=== PATIENT | male | born 1980 | race Caucasian/White ===

== ENCOUNTER 2022-06-08 05:42 | Observation (INO) | payer OTHER ==
--- NOTE | 2022-06-08 06:33 | ERPHSYRPT ---
- History of Present Illness Time Seen by Provider: 06/08/22 06:29 Source: patient Exam Limitations: no limitations Patient Subjective Stated Complaint: pt states I need detoxed now or else I'm going to . I am probably in DKA because I have not had my medicine for the p ast week. Triage Nursing Assessment: pt came into the er via ambulance; pt is restless, irritable, yelling out; c/o abd pain; ETOH; axo x3; abd round, soft, tender; active bowel sounds in all quads; no respiratory distress present; skin PDW; blood sugar on arrival reads HI; tachycardic Physician History: Patient is a 41-year-old male presents to our ED via EMS for evaluation of alcohol withdrawal. Patient states he drinks approximately half gallon of vodka per day. Patient last drink was approximately 1 hour prior to arrival. Patient states that he was unable to continue drinking because his body was "rejecting it". Patient is a type I diabetic. Patient believes he may be experiencing DKA which is possibly the underlying reason why his body is rejecting the alcohol. Patient has not taken his medication in over a week. No clear explanation as to why he has not been compliant with his medication regimen. Patient is experiencing some vague epigastric pain. No trauma. No fever. Patient is afraid that he may go into withdrawals. Symptoms are constant. Symptoms are moderate in intensity. No specific worsening improving factors. Patient voices no other complaints or concerns at this time. Portions of this note were created with voice recognition technology. There may be grammatical, spelling, punctuation or sound alike errors Timing/Duration: today Severity: moderate Modifying Factors: Improves With: nothing Associated Symptoms: denies symptoms, abdominal pain Allergies/Adverse Reactions: No Known Drug Allergies Allergy (Unverified 06/08/22 05:50) Home Medications: No Reportable Medications [No Reported Medications] 06/08/22 [History] Hx Tetanus, Diphtheria Vaccination/Date Given: Yes Hx Influenza Vaccination/Date Given: Yes Hx Pneumococcal Vaccination/Date Given: No Travel Risk - International Travel Have you traveled outside of the country in past 3 weeks: No - Coronavirus Screening Are you exhibiting any of the following symptoms?: No Close contact with a COVID-19 positive Pt in past 14-21 Days: No - Vaccine Status Have you recieved a Covid-19 vaccination: Yes [employer]: [employer] - Review of Systems Constitutional: No Symptoms, No Fever, No Chills Eyes: No Symptoms Ears, Nose, & Throat: No Symptoms Respiratory: No Symptoms, No Cough, No Dyspnea Cardiac: No Symptoms, No Chest Pain, No Edema, No Syncope Abdominal/Gastrointestinal: No Symptoms, No Abdominal Pain, No Nausea, No Vomiting, No Diarrhea Genitourinary Symptoms: No Symptoms, No Dysuria Musculoskeletal: No Symptoms, No Back Pain, No Neck Pain Skin: No Symptoms, No Rash Neurological: No Symptoms, No Dizziness, No Focal Weakness, No Sensory Changes Psychological: No Symptoms Endocrine: No Symptoms Hematologic/Lymphatic: No Symptoms Immunological/Allergic: No Symptoms All Other Systems: Reviewed and Negative - Past Medical History Pertinent Past Medical History: Yes Cardiac History: Hypertension Endocrine Medical History: Diabetes Type I Psycho-Social History: Anxiety, Bipolar, Depression - Past Surgical History Past Surgical History: No - Social History Smoking Status: Current every day smoker How long have you smoked: 20 Exposure to second hand smoke: Yes Drug Use: methamphetamines Patient Lives Alone: No - Nursing Vital Signs Nursing Vital Signs: Initial Vital Signs Temperature 98.7 F 06/08/22 05:43 Pulse Rate 109 H 06/08/22 05:43 Respiratory Rate 26 H 06/08/22 05:43 Blood Pressure 132/97 06/08/22 05:43 O2 Sat by Pulse Oximetry 97 06/08/22 05:43 Pain Scale Pain Intensity 10 - Physical Exam General Appearance: mild distress, alert, other (Patient appears to be restless concerned with alcohol detox. Patient requesting admission) Eye Exam: PERRL/EOMI, eyes nml inspection Ears, Nose, Throat Exam: normal ENT inspection, TMs normal, pharynx normal, moist mucous membranes Neck Exam: normal inspection, non-tender, supple, full range of motion Respiratory Exam: normal breath sounds, lungs clear, airway intact, No re spiratory distress Cardiovascular Exam: regular rate/rhythm, normal heart sounds, normal peripheral pulses Gastrointestinal/Abdomen Exam: soft, normal bowel sounds, tenderness, No mass Back Exam: normal inspection, normal range of motion, No CVA tenderness, No vertebral tenderness Extremity Exam: normal inspection, normal range of motion, pelvis stable Neurologic Exam: alert, oriented x 3, cooperative, normal mood/affect, sensation nml, No motor deficits Skin Exam: normal color, warm, dry, No rash Lymphatic Exam: No adenopathy SpO2 Interpretation: normal SpO2: 97 O2 Delivery: Room Air - Course Nursing assessment & vital signs reviewed: Yes Ordered Tests: Active Orders 24 hr Category Date Time Status Inspector And Unloader STAT Care 06/08/22 06:23 Active IV Insertion STAT Care 06/08/22 06:22 Active Pulse Oximetry (ED) STAT Care 06/08/22 06:22 Active CBC W DIFF Stat Lab 06/08/22 06:22 Ordered CMP Stat Lab 06/08/22 06:22 Ordered ETHYL ALCOHOL Stat Lab 06/08/22 06:22 Ordered LIPASE Stat Lab 06/08/22 06:22 Ordered TROPONIN Q4H Lab 06/08/22 06:30 Ordered TROPONIN Q4H Lab 06/08/22 10:30 Ordered TROPONIN Q4H Lab 06/08/22 14:30 Ordered UA W/RFX UR CULTURE Stat Lab 06/08/22 06:31 Completed Urine Triage Profile Stat Lab 06/08/22 06:31 Received Lab/Rad Data: Laboratory Results 06/08/22 Range/Units 06:31 Urine Color Yellow (Yellow) Urine Appearance Clear (Clear) Urine pH 5.5 (4.6-8.0) Ur Specific [place] >=1.030 A (1.005-1.030) Urine Protein Negative (Negative) Urine Glucose (UA) >=1000 A (Negative) mg/dL Urine Ketones 40 A (Negative) Urine Blood Negative (Negative) Urine Nitrite Negative (Negative) Urine Bilirubin Negative (Negative) Urine Urobilinogen 0.2 (0.2) mg/dL Ur Leukocyte Esterase Negative (Negative) U Hyaline Cast (Auto) NONE SEEN (0-2) /LPF Urine Microscopic RBC 0-2 (0-5) /HPF Urine Microscopic WBC 0-2 (0-5) /HPF Ur Epithelial Cells None Seen (None Seen) /HPF Urine Bacteria None Seen (None Seen) /HPF Urine Culture Reflexed NO (NO) - Progress Progress: improved Progress Note: Staff having difficult time accessing patient. Patient states he is a hard stick due to history of IV drug use. Patient reports that he typically requires a PICC line for access. We are currently awaiting blood draw and access. Surgical services consulted. 06/08/22 06:[address] Lizama at approximately 7 PM during change of shift. 06/08/22 06:50 - Departure Clinical Impression: Alcohol use Condition: Stable Critical Care Time: No
[2022-06-08 06:46] LABS: Appearance Clear (Clear); Bacteria None Seen /HPF (None Seen); Bilirubin Negative (Negative); Blood Negative (Negative); Epithelial Cells None Seen /HPF (None Seen); Glucose, Urine >=1000 mg/dL (Negative); Hyaline Casts NONE SEEN /LPF (0-2); Ketones 40 (Negative); Leukocyte Esterase Negative (Negative); Nitrite Negative (Negative); Ph 5.5 (4.6-8.0); Protein,Urine Dip Negative (Negative); RBC 0-2 /HPF (0-5); Specific Gravity >=1.030 (1.005-1.030); Urobilinogen 0.2 mg/dL (0.2); WBC 0-2 /HPF (0-5)
[2022-06-08 06:47] LABS: ADD URINE CULTURE? NO (NO)
[2022-06-08 06:57] LABS: Amphetamine,Urine NEGATIVE (NEGATIVE); Barbiturate,Urine NEGATIVE (NEGATIVE); Benzodiazepine,Urine NEGATIVE (NEGATIVE); Cocaine,Urine NEGATIVE (NEGATIVE); Methadone,Urine NEGATIVE (NEGATIVE); Opiate,Urine NEGATIVE (NEGATIVE); PCP,Urine NEGATIVE (NEGATIVE); THC,Urine NEGATIVE (NEGATIVE)
[2022-06-08 06:59] LABS: Absolute Neutrophil Ct (ANC) 5.84 x10^3/uL (1.4-6.9); BASOPHIL % 1.5 % (0.0-0.4); Basophil (Absolute #) 0.12 x10^3/uL (0-0.4); Eosinophil % 0.1 % (0.00-5.0); Eosinophil (Absolute #) 0.01 x10^3/uL (0-0.5); Hematocrit 47.1 % (42-50); Hemoglobin 14.6 g/dL (12.5-18.0); IMMATURE GRAN # 0.02 x10^3u/L (0.00-0.03); IMMATURE GRAN % 0.2 % (0.00-0.4); Lymphocytes % 18.4 % (24.0-44.0); Mean Cell Volume 93.6 fL (78-100); Mean Platelet Volume 10.2 fL (7.5-11.0); Monocyte (Absolute #) 0.67 x10^3/uL (0.0-1.3); Monocytes % 8.2 % (0.0-12.0); Neutrophil % 71.6 % (36.0-66.0); Platelet Count 386 x10^3/uL (150-450); Red Blood Count 5.03 x10^6/uL (4.1-5.6); Red Cell Distribution Width 14.2 % (11.5-14.0); White Blood Count 8.2 x10^3/uL (4.0-10.5)
[2022-06-08 07:14] LABS: ALBUMIN 5.3 g/dL (3.5-5.0); ALKALINE PHOSPHATASE 175 U/L (38-126); ANION GAP 40.4 MEQ/L (5-15); BLOOD UREA NITROGEN 21 mg/dL (9-20); CHLORIDE 83 mmol/L (98-107); Calcium 9.1 mg/dL (8.4-10.2); Creatinine 1 1.18 mg/dL (0.66-1.25); EST GLOMERULAR FILTRATION RATE > 60.0 ML/MIN; ETHYL ALCOHOL 153 mg/dL (0-10); LIPASE 147 U/L (23-300); SGOT/AST 35 U/L (17-59); SGPT/ALT 28 U/L (0-50); SODIUM 126 mmol/L (137-145); Total Protein 9.6 g/dL (6.3-8.2)
[2022-06-08] MEDS ORDERED: Ativan 2 MG/1 ML VIAL IV ONE (07:15)
[2022-06-08] MEDS ORDERED: Ativan 2 MG/1 ML VIAL ONE (07:19)
[2022-06-08 07:33] LABS: Glucose 919 mg/dL (74-106)
[2022-06-08 07:34] LABS: Carbon Dioxide 10 mmol/L (22-30); Potassium 6.5 mmol/L (3.5-5.1)
[2022-06-08] MEDS ORDERED: VELTASSA PO STA (07:44)
[2022-06-08] MEDS ORDERED: PROVENTIL 2.5 MG/3 ML NEB IH ONE ×2 (07:44→07:55)
[2022-06-08] MEDS ORDERED: VELTASSA PO ONE ×2 (07:49→07:51)
[2022-06-08] MEDS ORDERED: Ativan 2 MG/1 ML VIAL IM ONE (07:54)
[2022-06-08] MEDS ORDERED: HUMULIN R SQ ONE (08:37)
[2022-06-08 08:58] LABS: INFLUENZA A NEGATIVE (NEGATIVE); INFLUENZA B NEGATIVE (NEGATIVE); RESPIRATORY SYNCTIAL VIRUS NEGATIVE (NEGATIVE); SARS-CoV-2 Xpert Express NEGATIVE (NEGATIVE)
--- NOTE | 2022-06-08 09:00 | XRAY ---
Indication: Pain. Surgical history offered for cyst removal from pancreas. Multiple contiguous axial images obtained through the abdomen and pelvis without contrast. Comparison: None Study is mildly degraded by respiration artifact throughout. Lung bases grossly clear. Heart not enlarged. Stomach is distended with mildly fluid distended either from recent ingestion versus gastritis. Radiopacities in the stomach presumed ingested medication/bismuth. Noncontrasted bowel loops appear nonobstructed. Appendix not seen. Minimal sigmoid diverticulosis without diverticulitis. Tail of pancreas demonstrates 1.9 x 3.3 cm benign-appearing calcification presumed post surgical given patient history. Diffuse fatty liver. No free fluid/air. Remaining liver, gallbladder, pancreas, spleen, adrenal glands, kidneys, ureters, and bladder are unremarkable for noncontrast exam. Minimal aortic calcifications without AAA. Osseous structures intact. 2.5 cm wide umbilical ventral hernia defect with large herniated omental fat. Impression: 1. Diffuse respiration artifact. 2. Fluid distended stomach either from recent ingestion versus gastritis. 3. Chronic findings including pancreas macrocalcification presumed postsurgical, fatty liver, arteriosclerotic disease, and fatty umbilical ventral hernia.
[2022-06-08] MEDS ORDERED: HUMULIN R ONE (09:02)
[2022-06-08] MEDS ORDERED: SODIUM BICARBONATE 50 MEQ/50 ML ABBOJECT IV ONE ×2 (09:30→11:24)
[2022-06-08] MEDS ORDERED: Sodium Chloride 0.9% 1000 ML 1,000 ML IV STA (09:30)
[2022-06-08] MEDS ORDERED: Lasix 40 MG/4 ML IV ONE (09:30)
[2022-06-08] MEDS ORDERED: Calcium Gluconate 10% 1000 MG IV ONE ×2 (09:31→11:23)
[2022-06-08] MEDS ORDERED: Sodium Chloride 0.9% 1000 ML 1,000 ML ONE ×3 (11:24→23:06)
[2022-06-08] MEDS ORDERED: Lasix 40 MG/4 ML ONE (11:24)
--- NOTE | 2022-06-08 11:45 | XRAY ---
Indication: Central line placement. Comparison: None Portable chest demonstrates right internal jugular central venous access catheter with tip projecting over atrial caval junction. No pneumothorax. Remaining heart, lungs, and bony thorax normal.
[2022-06-08] MEDS ORDERED: MYXREDLIN 100 UNIT/100 ML BAG 100 UNIT/100 ML PLAST..BAG IV ONE (12:14)
[2022-06-08 13:28] LABS: BLOOD UREA NITROGEN 21 mg/dL (9-20); CHLORIDE 88 mmol/L (98-107); Calcium 9.5 mg/dL (8.4-10.2); Carbon Dioxide 20 mmol/L (22-30); Creatinine 1 0.97 mg/dL (0.66-1.25); EST GLOMERULAR FILTRATION RATE > 60.0 ML/MIN; Glucose 418 mg/dL (74-106); Potassium 4.1 mmol/L (3.5-5.1); SODIUM 132 mmol/L (137-145)
[2022-06-08] MEDS ORDERED: MYXREDLIN 100 UNIT/100 ML BAG 100 UNIT/100 ML PLAST..BAG IV PRN (13:50)
--- NOTE | 2022-06-08 15:22 | ANESPROCNO ---
Anesthesia Procedure Note - Anesthesia Procedure Note Procedure Date:: 06/08/22 Procedure Time:: 10:00 Anesthesia Procedure Note: Consulted to ER for central venous access; Dx DKA. Informed consent obtained from patient. Risks/benefits discussed to include bleeding, infection, hematoma, vascular injury, and pneumothorax. Patient verbalized understanding and agreed to proceed. Right neck prep CHG2%IPA70% allowed 3 minute dry time. Right neck sterile prep and drape with all protective barriers utilized including full body drape and sterile ultrasound probe cover. Using ultrasound guidance, the right internal jugular was identified as target vessel. Skin and subcutaneous tissue above target vessel localized with 5cc 1% lidocaine. Using an Arrow three-lumen CVC kit, the target vessel was cannulated with the 18ga X 2.5 spring-wire introduction needle/syringe X 1 attempt. Positive brisk venous, non-pulsatile blood return. The guidewire was then introduced through the syringe/needle easily and needle removed. Wire placement within the right internal jugular vein was verified using ultrasound in both short and long vessel axis. The vessel dilator was introduced X 1 over the wire easily. At this point, the 7 FR X 20 cm 3 lumen catheter was introduced using the distal port to a depth of 19 cm and the wire removed. Care was taken to aspirate all lumens of air and subsequently flushed with normal saline. All ports with brisk venous blood return and flushed easily. The catheter was then sutured in place and a sterile occlusive dressing was applied. All needles and wires were removed intact. There were no complications and the patient tolerated the procedure well. A stat PCXR was obtained. No pneumothorax. Tip residing in the cavoatrial junction.
[2022-06-08] MEDS ORDERED: PROTONIX 40 MG IV IV SCH (15:23)
[2022-06-08] MEDS ORDERED: TYLENOL 325 MG PO PRN (15:23)
[2022-06-08] MEDS ORDERED: Zofran 4 MG/2 ML VIAL IV PRN (15:23)
[2022-06-08] MEDS ORDERED: Ativan 2 MG/1 ML VIAL IV PRN (15:23)
[2022-06-08] MEDS ORDERED: Sodium Chloride 0.9% 1000 ML 1,000 ML IV SCH (15:23)
[2022-06-08] MEDS: Ativan 2 MG/1 ML VIAL IV PRN ×4 (15:32→22:25)
[2022-06-08 15:37] LABS: BLOOD UREA NITROGEN 21 mg/dL (9-20); CHLORIDE 92 mmol/L (98-107); Carbon Dioxide 26 mmol/L (22-30); Creatinine 1 0.96 mg/dL (0.66-1.25); EST GLOMERULAR FILTRATION RATE > 60.0 ML/MIN; Glucose 252 mg/dL (74-106); Potassium 3.8 mmol/L (3.5-5.1); SODIUM 134 mmol/L (137-145)
[2022-06-08] MEDS ORDERED: HUMALOG SQ PRN (16:00)
[2022-06-08] MEDS: D5W/0.45NS W/ 20mEq KCl 1000 ML 1,000 ML IV SCH ×2 (16:38→23:38)
[2022-06-08 17:21] LABS: Calcium 10.2 mg/dL (8.4-10.2)
--- NOTE | 2022-06-08 17:57 | PCM.HP ---
History of Present Illness - Chief Complaint Chief Complaint: DKA, HYPONATREMIA, HYPERKALEMIA, ALCOHOL INTOXICATION History of Present Illness: is a 41 year old male.for evaluation of alcohol withdrawal. Patient states he drinks approximately half gallon of vodka per day. Patient last drink was approximately 1 hour prior to arrival. Patient states that he was unable to continue drinking because his body was "rejecting it". Patient is a type I diabetic. Patient believes he may be experiencing DKA which is possibly the underlying reason why his body is rejecting the alcohol. Patient has not taken his medication in over a week. No clear explanation as to why he has not been compliant with his medication regimen. Patient is experiencing some vague epigastric pain. No trauma. No fever. Patient is afraid that he may go into withdrawals. Symptoms are constant. Symptoms are moderate in intensity. No specific worsening improving factors. Patient voices no other complaints or concerns at this time. - Review of Systems Constitutional: Weakness, No Fever, No Chills Eyes: No Symptoms Ears, Nose, & Throat: No Symptoms Respiratory: No Cough, No Short Of Breath Cardiac: No Chest Pain, No Edema, No Syncope Abdominal/Gastrointestinal: No Abdominal Pain, No Nausea, No Vomiting, No Diarrhea Genitourinary Symptoms: No Dysuria Musculoskeletal: No Back Pain, No Neck Pain Skin: No Rash Neurological: No Dizziness, No Focal Weakness, No Sensory Changes Psychological: No Symptoms Endocrine: No Symptoms Hematologic/Lymphatic: No Symptoms Immunological/Allergic: No Symptoms Medications & Allergies Home Medications: Home Medication List No Reportable Medications [No Reported Medications] 06/08/22 [History Confirmed 06/08/22] Allergies/Adverse Reactions: Allergies Allergy/AdvReac Type Severity Reaction Status Date / Time No Known Drug Allergies Allergy Unverified 06/08/22 05:50 - Past Medical History Past Medical History: Yes Neurological History: No Pertinent History ENT History: No Pertinent History Cardiac History: Hypertension Respiratory History: No Pertinent History Endocrine Medical History: Diabetes Type I Musculoskelatal History: No Pertinent History GI Medical History: No Pertinent History History: No Pertinent History Pyscho-Social History: Anxiety, Bipolar, Depression Male Reproductive Disorders: No Pertinent History - Past Surgical History Past Surgical History: No - Social History Smoking Status: Unknown if ever smoked How long have you smoked: 20 Exposure to second hand smoke: Yes Alcohol: Heavy, Daily Drug Use: methamphetamines - Physical Exam Vital Signs: Vital Signs - 24 hr Temp Pulse Resp BP Pulse Ox 06/08/22 15:35 98.0 F 122 H 21 171/93 97 06/08/22 15:00 94 H 23 140/72 97 06/08/22 14:00 110 H 25 H 140/72 97 06/08/22 12:46 97 H 24 127/73 95 06/08/22 11:52 110 H 25 H 158/83 95 06/08/22 10:02 104 H 144/73 98 06/08/22 09:18 117 H 17 125/96 98 06/08/22 08:17 104 H 18 156/78 98 06/08/22 08:06 105 H 20 97 06/08/22 06:56 97 06/08/22 06:56 108 H 24 167/94 98 06/08/22 06:31 97 06/08/22 05:43 98.7 F 109 H 26 H 132/97 97 General Appearance: no apparent distress, alert Neurologic Exam: alert, oriented x 3, cooperative, normal mood/affect, nml cerebellar function, nml station & gait, sensation nml, No motor deficits Eye Exam: PERRL/EOMI, eyes nml inspection Ears, Nose, Throat Exam: normal ENT inspection, TMs normal, pharynx normal, moist mucous membranes Neck Exam: normal inspection, non-tender, supple, full range of motion Respiratory Exam: normal breath sounds, lungs clear, No respiratory distress Cardiovascular Exam: regular rate/rhythm, normal heart sounds, normal peripheral pulses Gastrointestinal/Abdomen Exam: soft, normal bowel sounds, No tenderness, No mass Back Exam: normal inspection, normal range of motion, No CVA tenderness, No vertebral tenderness Extremity Exam: normal inspection, normal range of motion, pelvis stable Skin Exam: normal color, warm, dry, No rash Lymphatic Exam: No adenopathy Results - Labs Lab/Micro Results: Lab Results-Last 24 Hours 06/08/22 06/08/22 06/08/22 Range/Units 06:31 06:31 06:40 WBC (4.0-10.5) x10^3/uL RBC (4.1-5.6) x10^6/uL Hgb (12.5-18.0) g/dL Hct (42-50) % MCV (78-100) fL MCH (26-32) pg MCHC (32-36) g/dL RDW (11.5-14.0) % Plt Count (150-450) x10^3/uL MPV (7.5-11.0) fL Gran % (36.0-66.0) % Immature Gran % (Auto) (0.00-0.4) % Nucleat RBC Rel Count (0.00-0.1) % Eos # (Auto) (0-0.5) x10^3/uL Immature Gran # (Auto) (0.00-0.03) x10^3u/L Absolute Lymphs (auto) (1.0-4.6) x10^3/uL Absolute Monos (auto) (0.0-1.3) x10^3/uL Absolute Nucleated RBC (0.00-0.01) x10^3u/L Lymphocytes % (24.0-44.0) % Monocytes % (0.0-12.0) % Eosinophils % (0.00-5.0) % Basophils % (0.0-0.4) % Absolute Granulocytes (1.4-6.9) x10^3/uL Basophils # (0-0.4) x10^3/uL Sodium (137-145) mmol/L Potassium (3.5-5.1) mmol/L Chloride (98-107) mmol/L Carbon Dioxide (22-30) mmol/L Anion Gap (5-15) MEQ/L BUN (9-20) mg/dL Creatinine (0.66-1.25) mg/dL Estimated GFR ML/MIN Glucose (74-106) mg/dL POC Glucometer (50 to 500) mg/dL Calcium (8.4-10.2) mg/dL Magnesium (1.6-2.3) mg/dL Total Bilirubin (0.2-1.3) mg/dL AST (17-59) U/L ALT (0-50) U/L Alkaline Phosphatase (38-126) U/L Troponin I (0.000-0.034) ng/mL Serum Total Protein (6.3-8.2) g/dL Albumin (3.5-5.0) g/dL Amylase 73 (30-110) U/L Lipase (23-300) U/L Urine Color Yellow (Yellow) Urine Appearance Clear (Clear) Urine pH 5.5 (4.6-8.0) Ur Specific [place] >=1.030 A (1.005-1.030) Urine Protein Negative (Negative) Urine Glucose (UA) >=1000 A (Negative) mg/dL Urine Ketones 40 A (Negative) Urine Blood Negative (Negative) Urine Nitrite Negative (Negative) Urine Bilirubin Negative (Negative) Urine Urobilinogen 0.2 (0.2) mg/dL Ur Leukocyte Esterase Negative (Negative) U Hyaline Cast (Auto) NONE SEEN (0-2) /LPF Urine Microscopic RBC 0-2 (0-5) /HPF Urine Microscopic WBC 0-2 (0-5) /HPF Ur Epithelial Cells None Seen (None Seen) /HPF Urine Bacteria None Seen (None Seen) /HPF Urine Culture Reflexed NO (NO) Urine Opiates Level NEGATIVE (NEGATIVE) Ur Methadone NEGATIVE (NEGATIVE) Urine Barbiturates NEGATIVE (NEGATIVE) Ur Phencyclidine (PCP) NEGATIVE (NEGATIVE) Urine Amphetamine NEGATIVE (NEGATIVE) U Benzodiazepine Level NEGATIVE (NEGATIVE) Urine Cocaine NEGATIVE (NEGATIVE) Urine Marijuana (THC) NEGATIVE (NEGATIVE) Ethyl Alcohol (0-10) mg/dL Influenza Type A Ag (NEGATIVE) Influenza Type B Ag (NEGATIVE) RSV (PCR) (NEGATIVE) SARS-CoV-2 (PCR) (NEGATIVE) 06/08/22 06/08/22 06/08/22 Range/Units 06:53 06:53 06:53 WBC 8.2 (4.0-10.5) x10^3/uL RBC 5.03 (4.1-5.6) x10^6/uL Hgb 14.6 (12.5-18.0) g/dL Hct 47.1 (42-50) % MCV 93.6 (78-100) fL MCH 29.0 (26-32) pg MCHC 31.0 L (32-36) g/dL RDW 14.2 H (11.5-14.0) % Plt Count 386 (150-450) x10^3/uL MPV 10.2 (7.5-11.0) fL Gran % 71.6 H (36.0-66.0) % Immature Gran % (Auto) 0.2 (0.00-0.4) % Nucleat RBC Rel Count 0.0 (0.00-0.1) % Eos # (Auto) 0.01 (0-0.5) x10^3/uL Immature Gran # (Auto) 0.02 (0.00-0.03) x10^3u/L Absolute Lymphs (auto) 1.50 (1.0-4.6) x10^3/uL Absolute Monos (auto) 0.67 (0.0-1.3) x10^3/uL Absolute Nucleated RBC 0.00 (0.00-0.01) x10^3u/L Lymphocytes % 18.4 L (24.0-44.0) % Monocytes % 8.2 (0.0-12.0) % Eosinophils % 0.1 (0.00-5.0) % Basophils % 1.5 (0.0-0.4) % Absolute Granulocytes 5.84 (1.4-6.9) x10^3/uL Basophils # 0.12 (0-0.4) x10^3/uL Sodium 126 L (137-145) mmol/L Potassium 6.5 H* (3.5-5.1) mmol/L Chloride 83 L (98-107) mmol/L Carbon Dioxide 10 L* (22-30) mmol/L Anion Gap 40.4 H (5-15) MEQ/L BUN 21 H (9-20) mg/dL Creatinine 1.18 (0.66-1.25) mg/dL Estimated GFR > 60.0 ML/MIN Glucose 919 H* (74-106) mg/dL POC Glucometer (50 to 500) mg/dL Calcium 9.1 (8.4-10.2) mg/dL Magnesium (1.6-2.3) mg/dL Total Bilirubin 0.80 (0.2-1.3) mg/dL AST 35 (17-59) U/L ALT 28 (0-50) U/L Alkaline Phosphatase 175 H (38-126) U/L Troponin I < 0.012 (0.000-0.034) ng/mL Serum Total Protein 9.6 H (6.3-8.2) g/dL Albumin 5.3 H (3.5-5.0) g/dL Amylase (30-110) U/L Lipase 147 (23-300) U/L Urine Color (Yellow) Urine Appearance (Clear) Urine pH (4.6-8.0) Ur Specific [place] (1.005-1.030) Urine Protein (Negative) Urine Glucose (UA) (Negative) mg/dL Urine Ketones (Negative) Urine Blood (Negative) Urine Nitrite (Negative) Urine Bilirubin (Negative) Urine Urobilinogen (0.2) mg/dL Ur Leukocyte Esterase (Negative) U Hyaline Cast (Auto) (0-2) /LPF Urine Microscopic RBC (0-5) /HPF Urine Microscopic WBC (0-5) /HPF Ur Epithelial Cells (None Seen) /HPF Urine Bacteria (None Seen) /HPF Urine Culture Reflexed (NO) Urine Opiates Level (NEGATIVE) Ur Methadone (NEGATIVE) Urine Barbiturates (NEGATIVE) Ur Phencyclidine (PCP) (NEGATIVE) Urine Amphetamine (NEGATIVE) U Benzodiazepine Level (NEGATIVE) Urine Cocaine (NEGATIVE) Urine Marijuana (THC) (NEGATIVE) Ethyl Alcohol 153 H (0-10) mg/dL Influenza Type A Ag (NEGATIVE) Influenza Type B Ag (NEGATIVE) RSV (PCR) (NEGATIVE) SARS-CoV-2 (PCR) (NEGATIVE) 06/08/22 06/08/22 06/08/22 Range/Units 08:10 11:38 11:44 WBC (4.0-10.5) x10^3/uL RBC (4.1-5.6) x10^6/uL Hgb (12.5-18.0) g/dL Hct (42-50) % MCV (78-100) fL MCH (26-32) pg MCHC (32-36) g/dL RDW (11.5-14.0) % Plt Count (150-450) x10^3/uL MPV (7.5-11.0) fL Gran % (36.0-66.0) % Immature Gran % (Auto) (0.00-0.4) % Nucleat RBC Rel Count (0.00-0.1) % Eos # (Auto) (0-0.5) x10^3/uL Immature Gran # (Auto) (0.00-0.03) x10^3u/L Absolute Lymphs (auto) (1.0-4.6) x10^3/uL Absolute Monos (auto) (0.0-1.3) x10^3/uL Absolute Nucleated RBC (0.00-0.01) x10^3u/L Lymphocytes % (24.0-44.0) % Monocytes % (0.0-12.0) % Eosinophils % (0.00-5.0) % Basophils % (0.0-0.4) % Absolute Granulocytes (1.4-6.9) x10^3/uL Basophils # (0-0.4) x10^3/uL Sodium (137-145) mmol/L Potassium (3.5-5.1) mmol/L Chloride (98-107) mmol/L Carbon Dioxide (22-30) mmol/L Anion Gap (5-15) MEQ/L BUN (9-20) mg/dL Creatinine (0.66-1.25) mg/dL Estimated GFR ML/MIN Glucose (74-106) mg/dL POC Glucometer 533 H* (50 to 500) mg/dL Calcium (8.4-10.2) mg/dL Magnesium (1.6-2.3) mg/dL Total Bilirubin (0.2-1.3) mg/dL AST (17-59) U/L ALT (0-50) U/L Alkaline Phosphatase (38-126) U/L Troponin I < 0.012 (0.000-0.034) ng/mL Serum Total Protein (6.3-8.2) g/dL Albumin (3.5-5.0) g/dL Amylase (30-110) U/L Lipase (23-300) U/L Urine Color (Yellow) Urine Appearance (Clear) Urine pH (4.6-8.0) Ur Specific [place] (1.005-1.030) Urine Protein (Negative) Urine Glucose (UA) (Negative) mg/dL Urine Ketones (Negative) Urine Blood (Negative) Urine Nitrite (Negative) Urine Bilirubin (Negative) Urine Urobilinogen (0.2) mg/dL Ur Leukocyte Esterase (Negative) U Hyaline Cast (Auto) (0-2) /LPF Urine Microscopic RBC (0-5) /HPF Urine Microscopic WBC (0-5) /HPF Ur Epithelial Cells (None Seen) /HPF Urine Bacteria (None Seen) /HPF Urine Culture Reflexed (NO) Urine Opiates Level (NEGATIVE) Ur Methadone (NEGATIVE) Urine Barbiturates (NEGATIVE) Ur Phencyclidine (PCP) (NEGATIVE) Urine Amphetamine (NEGATIVE) U Benzodiazepine Level (NEGATIVE) Urine Cocaine (NEGATIVE) Urine Marijuana (THC) (NEGATIVE) Ethyl Alcohol (0-10) mg/dL Influenza Type A Ag NEGATIVE (NEGATIVE) Influenza Type B Ag NEGATIVE (NEGATIVE) RSV (PCR) NEGATIVE (NEGATIVE) SARS-CoV-2 (PCR) NEGATIVE (NEGATIVE) 06/08/22 06/08/22 06/08/22 Range/Units 12:58 14:36 14:45 WBC (4.0-10.5) x10^3/uL RBC (4.1-5.6) x10^6/uL Hgb (12.5-18.0) g/dL Hct (42-50) % MCV (78-100) fL MCH (26-32) pg MCHC (32-36) g/dL RDW (11.5-14.0) % Plt Count (150-450) x10^3/uL MPV (7.5-11.0) fL Gran % (36.0-66.0) % Immature Gran % (Auto) (0.00-0.4) % Nucleat RBC Rel Count (0.00-0.1) % Eos # (Auto) (0-0.5) x10^3/uL Immature Gran # (Auto) (0.00-0.03) x10^3u/L Absolute Lymphs (auto) (1.0-4.6) x10^3/uL Absolute Monos (auto) (0.0-1.3) x10^3/uL Absolute Nucleated RBC (0.00-0.01) x10^3u/L Lymphocytes % (24.0-44.0) % Monocytes % (0.0-12.0) % Eosinophils % (0.00-5.0) % Basophils % (0.0-0.4) % Absolute Granulocytes (1.4-6.9) x10^3/uL Basophils # (0-0.4) x10^3/uL Sodium 132 L (137-145) mmol/L Potassium 4.1 D (3.5-5.1) mmol/L Chloride 88 L (98-107) mmol/L Carbon Dioxide 20 L (22-30) mmol/L Anion Gap 28.0 H (5-15) MEQ/L BUN 21 H (9-20) mg/dL Creatinine 0.97 (0.66-1.25) mg/dL Estimated GFR > 60.0 ML/MIN Glucose 418 H (74-106) mg/dL POC Glucometer 288 H (50 to 500) mg/dL Calcium 9.5 (8.4-10.2) mg/dL Magnesium (1.6-2.3) mg/dL Total Bilirubin (0.2-1.3) mg/dL AST (17-59) U/L ALT (0-50) U/L Alkaline Phosphatase (38-126) U/L Troponin I < 0.012 (0.000-0.034) ng/mL Serum Total Protein (6.3-8.2) g/dL Albumin (3.5-5.0) g/dL Amylase (30-110) U/L Lipase (23-300) U/L Urine Color (Yellow) Urine Appearance (Clear) Urine pH (4.6-8.0) Ur Specific [place] (1.005-1.030) Urine Protein (Negative) Urine Glucose (UA) (Negative) mg/dL Urine Ketones (Negative) Urine Blood (Negative) Urine Nitrite (Negative) Urine Bilirubin (Negative) Urine Urobilinogen (0.2) mg/dL Ur Leukocyte Esterase (Negative) U Hyaline Cast (Auto) (0-2) /LPF Urine Microscopic RBC (0-5) /HPF Urine Microscopic WBC (0-5) /HPF Ur Epithelial Cells (None Seen) /HPF Urine Bacteria (None Seen) /HPF Urine Culture Reflexed (NO) Urine Opiates Level (NEGATIVE) Ur Methadone (NEGATIVE) Urine Barbiturates (NEGATIVE) Ur Phencyclidine (PCP) (NEGATIVE) Urine Amphetamine (NEGATIVE) U Benzodiazepine Level (NEGATIVE) Urine Cocaine (NEGATIVE) Urine Marijuana (THC) (NEGATIVE) Ethyl Alcohol (0-10) mg/dL Influenza Type A Ag (NEGATIVE) Influenza Type B Ag (NEGATIVE) RSV (PCR) (NEGATIVE) SARS-CoV-2 (PCR) (NEGATIVE) 06/08/22 06/08/22 06/08/22 Range/Units 14:55 14:55 16:03 WBC (4.0-10.5) x10^3/uL RBC (4.1-5.6) x10^6/uL Hgb (12.5-18.0) g/dL Hct (42-50) % MCV (78-100) fL MCH (26-32) pg MCHC (32-36) g/dL RDW (11.5-14.0) % Plt Count (150-450) x10^3/uL MPV (7.5-11.0) fL Gran % (36.0-66.0) % Immature Gran % (Auto) (0.00-0.4) % Nucleat RBC Rel Count (0.00-0.1) % Eos # (Auto) (0-0.5) x10^3/uL Immature Gran # (Auto) (0.00-0.03) x10^3u/L Absolute Lymphs (auto) (1.0-4.6) x10^3/uL Absolute Monos (auto) (0.0-1.3) x10^3/uL Absolute Nucleated RBC (0.00-0.01) x10^3u/L Lymphocytes % (24.0-44.0) % Monocytes % (0.0-12.0) % Eosinophils % (0.00-5.0) % Basophils % (0.0-0.4) % Absolute Granulocytes (1.4-6.9) x10^3/uL Basophils # (0-0.4) x10^3/uL Sodium 134 L (137-145) mmol/L Potassium 3.8 (3.5-5.1) mmol/L Chloride 92 L (98-107) mmol/L Carbon Dioxide 26 (22-30) mmol/L Anion Gap 20.0 H (5-15) MEQ/L BUN 21 H (9-20) mg/dL Creatinine 0.96 (0.66-1.25) mg/dL Estimated GFR > 60.0 ML/MIN Glucose 252 H (74-106) mg/dL POC Glucometer 209 H (50 to 500) mg/dL Calcium 10.2 (8.4-10.2) mg/dL Magnesium 2.3 (1.6-2.3) mg/dL Total Bilirubin (0.2-1.3) mg/dL AST (17-59) U/L ALT (0-50) U/L Alkaline Phosphatase (38-126) U/L Troponin I (0.000-0.034) ng/mL Serum Total Protein (6.3-8.2) g/dL Albumin (3.5-5.0) g/dL Amylase (30-110) U/L Lipase (23-300) U/L Urine Color (Yellow) Urine Appearance (Clear) Urine pH (4.6-8.0) Ur Specific [place] (1.005-1.030) Urine Protein (Negative) Urine Glucose (UA) (Negative) mg/dL Urine Ketones (Negative) Urine Blood (Negative) Urine Nitrite (Negative) Urine Bilirubin (Negative) Urine Urobilinogen (0.2) mg/dL Ur Leukocyte Esterase (Negative) U Hyaline Cast (Auto) (0-2) /LPF Urine Microscopic RBC (0-5) /HPF Urine Microscopic WBC (0-5) /HPF Ur Epithelial Cells (None Seen) /HPF Urine Bacteria (None Seen) /HPF Urine Culture Reflexed (NO) Urine Opiates Level (NEGATIVE) Ur Methadone (NEGATIVE) Urine Barbiturates (NEGATIVE) Ur Phencyclidine (PCP) (NEGATIVE) Urine Amphetamine (NEGATIVE) U Benzodiazepine Level (NEGATIVE) Urine Cocaine (NEGATIVE) Urine Marijuana (THC) (NEGATIVE) Ethyl Alcohol (0-10) mg/dL Influenza Type A Ag (NEGATIVE) Influenza Type B Ag (NEGATIVE) RSV (PCR) (NEGATIVE) SARS-CoV-2 (PCR) (NEGATIVE) 06/08/22 Range/Units 16:59 WBC (4.0-10.5) x10^3/uL RBC (4.1-5.6) x10^6/uL Hgb (12.5-18.0) g/dL Hct (42-50) % MCV (78-100) fL MCH (26-32) pg MCHC (32-36) g/dL RDW (11.5-14.0) % Plt Count (150-450) x10^3/uL MPV (7.5-11.0) fL Gran % (36.0-66.0) % Immature Gran % (Auto) (0.00-0.4) % Nucleat RBC Rel Count (0.00-0.1) % Eos # (Auto) (0-0.5) x10^3/uL Immature Gran # (Auto) (0.00-0.03) x10^3u/L Absolute Lymphs (auto) (1.0-4.6) x10^3/uL Absolute Monos (auto) (0.0-1.3) x10^3/uL Absolute Nucleated RBC (0.00-0.01) x10^3u/L Lymphocytes % (24.0-44.0) % Monocytes % (0.0-12.0) % Eosinophils % (0.00-5.0) % Basophils % (0.0-0.4) % Absolute Granulocytes (1.4-6.9) x10^3/uL Basophils # (0-0.4) x10^3/uL Sodium (137-145) mmol/L Potassium (3.5-5.1) mmol/L Chloride (98-107) mmol/L Carbon Dioxide (22-30) mmol/L Anion Gap (5-15) MEQ/L BUN (9-20) mg/dL Creatinine (0.66-1.25) mg/dL Estimated GFR ML/MIN Glucose (74-106) mg/dL POC Glucometer 186 H (50 to 500) mg/dL Calcium (8.4-10.2) mg/dL Magnesium (1.6-2.3) mg/dL Total Bilirubin (0.2-1.3) mg/dL AST (17-59) U/L ALT (0-50) U/L Alkaline Phosphatase (38-126) U/L Troponin I (0.000-0.034) ng/mL Serum Total Protein (6.3-8.2) g/dL Albumin (3.5-5.0) g/dL Amylase (30-110) U/L Lipase (23-300) U/L Urine Color (Yellow) Urine Appearance (Clear) Urine pH (4.6-8.0) Ur Specific [place] (1.005-1.030) Urine Protein (Negative) Urine Glucose (UA) (Negative) mg/dL Urine Ketones (Negative) Urine Blood (Negative) Urine Nitrite (Negative) Urine Bilirubin (Negative) Urine Urobilinogen (0.2) mg/dL Ur Leukocyte Esterase (Negative) U Hyaline Cast (Auto) (0-2) /LPF Urine Microscopic RBC (0-5) /HPF Urine Microscopic WBC (0-5) /HPF Ur Epithelial Cells (None Seen) /HPF Urine Bacteria (None Seen) /HPF Urine Culture Reflexed (NO) Urine Opiates Level (NEGATIVE) Ur Methadone (NEGATIVE) Urine Barbiturates (NEGATIVE) Ur Phencyclidine (PCP) (NEGATIVE) Urine Amphetamine (NEGATIVE) U Benzodiazepine Level (NEGATIVE) Urine Cocaine (NEGATIVE) Urine Marijuana (THC) (NEGATIVE) Ethyl Alcohol (0-10) mg/dL Influenza Type A Ag (NEGATIVE) Influenza Type B Ag (NEGATIVE) RSV (PCR) (NEGATIVE) SARS-CoV-2 (PCR) (NEGATIVE) Accuchecks Date 06/08/22 Time 11:52 - Radiology Impressions Radiology Exams & Impressions: Radiology Procedures Category Date Time Status ABDOMEN AND PELVIS W/0 CONTRAS [CT] Stat Exams 06/08/22 07:34 Completed CHEST 1 VIEW (PORTABLE) Stat Exams 06/08/22 11:[address]/ABDOMEN AND PELVIS W/0 CONTRAS Indication: Pain. Surgical history offered for cyst removal from pancreas. Multiple contiguous axial images obtained through the abdomen and pelvis without contrast. Comparison: None Study is mildly degraded by respiration artifact throughout. Lung bases grossly clear. Heart not enlarged. Stomach is distended with mildly fluid distended either from recent ingestion versus gastritis. Radiopacities in the stomach presumed ingested medication/bismuth. Noncontrasted bowel loops appear nonobstructed. Appendix not seen. Minimal sigmoid diverticulosis without diverticulitis. Tail of pancreas demonstrates 1.9 x 3.3 cm benign-appearing calcification presumed post surgical given patient history. Diffuse fatty liver. No free fluid/air. Remaining liver, gallbladder, pancreas, spleen, adrenal glands, kidneys, ureters, and bladder are unremarkable for noncontrast exam. Minimal aortic calcifications without AAA. Osseous structures intact. 2.5 cm wide umbilical ventral hernia defect with large herniated omental fat. Impression: 1. Diffuse respiration artifact. 2. Fluid distended stomach either from recent ingestion versus gastritis. 3. Chronic findings including pancreas macrocalcification presumed postsurgical, fatty liver, arteriosclerotic disease, and fatty umbilical ventral hernia. - Other Procedures and Tests Respiratory Therapy 06/08/22 15:23 EKG REPEAT IN AM Assessment/Plan (1) Alcoholic ketoacidosis Current Visit: Yes Status: Acute Assessment & Plan: Chief Complaint Diagnosis DKA, HYPONATREMIA, HYPERKALEMIA, ALCOHOL INTOXICATION Allergies Allergy/AdvReac Type Severity Reaction Status Date / Time No Known Drug Allergies Allergy Unverified 06/08/22 05:50 Vital Signs (Last 24 hours) Temp Pulse Resp BP Pulse Ox 06/08/22 15:35 98.0 F 122 H 21 171/93 97 06/08/22 15:00 94 H 23 140/72 97 06/08/22 14:00 110 H 25 H 140/72 97 06/08/22 12:46 97 H 24 127/73 95 06/08/22 11:52 110 H 25 H 158/83 95 06/08/22 10:02 104 H 144/73 98 06/08/22 09:18 117 H 17 125/96 98 06/08/22 08:17 104 H 18 156/78 98 06/08/22 08:06 105 H 20 97 06/08/22 06:56 97 06/08/22 06:56 108 H 24 167/94 98 06/08/22 06:31 97 06/08/22 05:43 98.7 F 109 H 26 H 132/97 97 Home Medications Medication Instructions Recorded Confirmed Last Taken Type No Reportable Medications [No 06/08/22 06/08/22 Unknown History Reported Medications] Current Medications Generic Name Dose Route Start Last Admin Trade Name Freq PRN Reason Stop Dose Admin Acetaminophen 650 mg 06/08/22 15:23 Acetaminophen 325 Mg Tablet PO 07/08/22 15:22 Q4H PRN PRN PAIN, FEVER, HEADACHE INSULIN REGULAR IN 0.9 % NACL 100 unit in 100 mls @ 9.3 mls/hr 06/08/22 13:50 06/08/22 17:00 Myxredlin 100 Unit/100 Ml Bag IV 07/08/22 13:49 0.04 unit/kg/hr .[id number] PRN 4 mls/hr HYPERGLYCEMIA Titration Protocol 0.1 UNIT/KG/HR Potassium Chloride/Dextrose/Sod Cl 1,000 mls @ 150 mls/hr 06/08/22 17:00 06/08/22 16:38 D5w/0.45ns W/ 20meq Kcl 1000 Ml IV 07/08/22 16:59 150 mls/hr .Q6H40M PATIENCE Administration Insulin Human Lispro 0 unit 06/08/22 16:00 Insulin Lispro 1 Unit SQ 07/08/22 15:59 UD PRN Lorazepam 0 mg 06/08/22 15:27 06/08/22 15:32 Lorazepam 2 Mg/1 Ml 2 Mg Vial IV 07/08/22 15:26 2 mg Q2H PRN PRN Administration CIWA SCORE Protocol Ondansetron HCl 4 mg 06/08/22 15:23 Ondansetron Hcl 4 Mg/2 Ml Vial IV 07/08/22 15:22 Q6H PRN PRN NAUSEA/VOMITING Pantoprazole Sodium 40 mg 06/08/22 15:23 06/08/22 16:20 Pantoprazole 40 Mg Vial IV 07/08/22 15:22 40 mg Q24H PATIENCE Administration Discontinued Medications Generic Name Dose Route Start Last Admin Trade Name Freq PRN Reason Stop Dose Admin Albuterol Sulfate 2.5 mg 06/08/22 07:44 06/08/22 07:59 Albuterol Sulfate 2.5 Mg/3 Ml Neb IH 06/08/22 07:45 2.5 mg STAT ONE Administration Albuterol Sulfate Confirm 06/08/22 07:55 Albuterol Sulfate 2.5 Mg/3 Ml Neb Administered 06/08/22 07:56 Dose 2.5 mg IH .STK-MED ONE Calcium Gluconate 1,000 mg 06/08/22 09:31 06/08/22 11:28 Calcium Gluconate 1000 Mg/10 Ml Vial IV 06/08/22 09:32 1,000 mg STAT ONE Administration Calcium Gluconate Confirm 06/08/22 11:23 Calcium Gluconate 1000 Mg/10 Ml Vial Administered 06/08/22 11:24 Dose 1,000 mg IV .STK-MED ONE Furosemide 40 mg 06/08/22 09:30 06/08/22 11:28 Furosemide 40 Mg/4 Ml Vial IV 06/08/22 09:31 40 mg STAT ONE Administration Furosemide Confirm 06/08/22 11:24 Furosemide 40 Mg/4 Ml Vial Administered 06/08/22 11:25 Dose 40 mg .ROUTE .STK-MED ONE Sodium Chloride 1,000 mls @ 999 mls/hr 06/08/22 09:30 06/08/22 12:44 Sodium Chloride 0.9% 1000 Ml IV 06/08/22 10:30 Infused .Q1H1M STA Infusion Sodium Chloride Confirm 06/08/22 11:24 Sodium Chloride 0.9% 1000 Ml Administered 06/08/22 11:25 Dose 1,000 mls @ ud .ROUTE .STK-MED ONE INSULIN REGULAR IN 0.9 % NACL Confirm 06/08/22 12:14 Myxredlin 100 Unit/100 Ml Bag Administered 06/08/22 12:15 Dose 100 unit in 100 mls @ ud IV .STK-MED ONE Sodium Chloride Confirm 06/08/22 12:49 Sodium Chloride 0.9% 1000 Ml Administered 06/08/22 12:50 Dose 1,000 mls @ ud .ROUTE .STK-MED ONE Sodium Chloride 1,000 mls @ 150 mls/hr 06/08/22 15:23 06/08/22 16:49 Sodium Chloride 0.9% 1000 Ml IV 07/08/22 15:22 Not Given .Q6H40M [facility] Insulin Human Regular 12 unit 06/08/22 08:37 06/08/22 09:03 Insulin Regular, Human 1 Unit SQ 06/08/22 08:38 12 unit STAT ONE Administration Insulin Human Regular Confirm 06/08/22 09:02 Insulin Regular, Human 1 Unit Administered 06/08/22 09:03 Dose 12 unit .ROUTE .STK-MED ONE Lorazepam 1 mg 06/08/22 07:15 06/08/22 07:20 Lorazepam 2 Mg/1 Ml 2 Mg Vial IV 06/08/22 07:16 1 mg STAT ONE Administration Lorazepam Confirm 06/08/22 07:19 Lorazepam 2 Mg/1 Ml 2 Mg Vial Administered 06/08/22 07:20 Dose 2 mg .ROUTE .STK-MED ONE Lorazepam 1 mg 06/08/22 07:54 06/08/22 07:58 Lorazepam 2 Mg/1 Ml 2 Mg Vial IM 06/08/22 07:55 1 mg STAT ONE Administration Lorazepam 1 mg 06/08/22 15:23 Lorazepam 2 Mg/1 Ml 2 Mg Vial IV 07/08/22 15:22 Q2H PRN PRN ANXIETY/AGITATION Patiromer 16.8 gm 06/08/22 07:44 06/08/22 07:50 Patiromer Calcium Sorbitex 8.4 Gm Powd.Pack PO 06/08/22 07:45 16.8 gm STAT STA Administration Patiromer Confirm 06/08/22 07:49 Patiromer Calcium Sorbitex 8.4 Gm Powd.Pack Administered 06/08/22 07:50 Dose 8.4 gm PO .STK-MED ONE Patiromer Confirm 06/08/22 07:51 Patiromer Calcium Sorbitex 8.4 Gm Powd.Pack Administered 06/08/22 07:52 Dose 8.4 gm PO .STK-MED ONE Sodium Bicarbonate 50 meq 06/08/22 09:30 06/08/22 11:28 Sodium Bicarbonate 1 Meq/Ml 50ml Syringe IV 06/08/22 09:31 50 meq STAT ONE Administration Sodium Bicarbonate Confirm 06/08/22 11:24 Sodium Bicarbonate 1 Meq/Ml 50ml Syringe Administered 06/08/22 11:25 Dose 50 meq IV .STK-MED ONE Intake & Output (Last 24 hours) 06/06/22 06/07/22 06/08/22 06/09/22 11:59 11:59 11:59 11:59 Intake Total 360 Output Total 600 Balance -240 Weight 93 kg 92 kg Laboratory Results (Last 24 hours) 06/08/22 06/08/22 06/08/22 16:59 16:03 14:55 WBC RBC Hgb Hct MCV MCH MCHC RDW Plt Count MPV Gran % Immature Gran % (Auto) Nucleat RBC Rel Count Eos # (Auto) Immature Gran # (Auto) Absolute Lymphs (auto) Absolute Monos (auto) Absolute Nucleated RBC Lymphocytes % Monocytes % Eosinophils % Basophils % Absolute Granulocytes Basophils # Sodium Potassium Chloride Carbon Dioxide Anion Gap BUN Creatinine Estimated GFR Glucose POC Glucometer 186 H 209 H Calcium Magnesium 2.3 Total Bilirubin AST ALT Alkaline Phosphatase Troponin I Serum Total Protein Albumin Amylase Lipase Urine Color Urine Appearance Urine pH Ur Specific [place] Urine Protein Urine Glucose (UA) Urine Ketones Urine Blood Urine Nitrite Urine Bilirubin Urine Urobilinogen Ur Leukocyte Esterase U Hyaline Cast (Auto) Urine Microscopic RBC Urine Microscopic WBC Ur Epithelial Cells Urine Bacteria Urine Culture Reflexed Urine Opiates Level Ur Methadone Urine Barbiturates Ur Phencyclidine (PCP) Urine Amphetamine U Benzodiazepine Level Urine Cocaine Urine Marijuana (THC) Ethyl Alcohol Influenza Type A Ag Influenza Type B Ag RSV (PCR) SARS-CoV-2 (PCR) 06/08/22 06/08/22 06/08/22 14:55 14:45 14:36 WBC RBC Hgb Hct MCV MCH MCHC RDW Plt Count MPV Gran % Immature Gran % (Auto) Nucleat RBC Rel Count Eos # (Auto) Immature Gran # (Auto) Absolute Lymphs (auto) Absolute Monos (auto) Absolute Nucleated RBC Lymphocytes % Monocytes % Eosinophils % Basophils % Absolute Granulocytes Basophils # Sodium 134 L Potassium 3.8 Chloride 92 L Carbon Dioxide 26 Anion Gap 20.0 H BUN 21 H Creatinine 0.96 Estimated GFR > 60.0 Glucose 252 H POC Glucometer 288 H Calcium 10.2 Magnesium Total Bilirubin AST ALT Alkaline Phosphatase Troponin I < 0.012 Serum Total Protein Albumin Amylase Lipase Urine Color Urine Appearance Urine pH Ur Specific [place] Urine Protein Urine Glucose (UA) Urine Ketones Urine Blood Urine Nitrite Urine Bilirubin Urine Urobilinogen Ur Leukocyte Esterase U Hyaline Cast (Auto) Urine Microscopic RBC Urine Microscopic WBC Ur Epithelial Cells Urine Bacteria Urine Culture Reflexed Urine Opiates Level Ur Methadone Urine Barbiturates Ur Phencyclidine (PCP) Urine Amphetamine U Benzodiazepine Level Urine Cocaine Urine Marijuana (THC) Ethyl Alcohol Influenza Type A Ag Influenza Type B Ag RSV (PCR) SARS-CoV-2 (PCR) 06/08/22 06/08/22 06/08/22 12:58 11:44 11:38 WBC RBC Hgb Hct MCV MCH MCHC RDW Plt Count MPV Gran % Immature Gran % (Auto) Nucleat RBC Rel Count Eos # (Auto) Immature Gran # (Auto) Absolute Lymphs (auto) Absolute Monos (auto) Absolute Nucleated RBC Lymphocytes % Monocytes % Eosinophils % Basophils % Absolute Granulocytes Basophils # Sodium 132 L Potassium 4.1 D Chloride 88 L Carbon Dioxide 20 L Anion Gap 28.0 H BUN 21 H Creatinine 0.97 Estimated GFR > 60.0 Glucose 418 H POC Glucometer 533 H* Calcium 9.5 Magnesium Total Bilirubin AST ALT Alkaline Phosphatase Troponin I < 0.012 Serum Total Protein Albumin Amylase Lipase Urine Color Urine Appearance Urine pH Ur Specific [place] Urine Protein Urine Glucose (UA) Urine Ketones Urine Blood Urine Nitrite Urine Bilirubin Urine Urobilinogen Ur Leukocyte Esterase U Hyaline Cast (Auto) Urine Microscopic RBC Urine Microscopic WBC Ur Epithelial Cells Urine Bacteria Urine Culture Reflexed Urine Opiates Level Ur Methadone Urine Barbiturates Ur Phencyclidine (PCP) Urine Amphetamine U Benzodiazepine Level Urine Cocaine Urine Marijuana (THC) Ethyl Alcohol Influenza Type A Ag Influenza Type B Ag RSV (PCR) SARS-CoV-2 (PCR) 06/08/22 06/08/22 06/08/22 08:10 06:53 06:53 WBC RBC Hgb Hct MCV MCH MCHC RDW Plt Count MPV Gran % Immature Gran % (Auto) Nucleat RBC Rel Count Eos # (Auto) Immature Gran # (Auto) Absolute Lymphs (auto) Absolute Monos (auto) Absolute Nucleated RBC Lymphocytes % Monocytes % Eosinophils % Basophils % Absolute Granulocytes Basophils # Sodium 126 L Potassium 6.5 H* Chloride 83 L Carbon Dioxide 10 L* Anion Gap 40.4 H BUN 21 H Creatinine 1.18 Estimated GFR > 60.0 Glucose 919 H* POC Glucometer Calcium 9.1 Magnesium Total Bilirubin 0.80 AST 35 ALT 28 Alkaline Phosphatase 175 H Troponin I < 0.012 Serum Total Protein 9.6 H Albumin 5.3 H Amylase Lipase 147 Urine Color Urine Appearance Urine pH Ur Specific [place] Urine Protein Urine Glucose (UA) Urine Ketones Urine Blood Urine Nitrite Urine Bilirubin Urine Urobilinogen Ur Leukocyte Esterase U Hyaline Cast (Auto) Urine Microscopic RBC Urine Microscopic WBC Ur Epithelial Cells Urine Bacteria Urine Culture Reflexed Urine Opiates Level Ur Methadone Urine Barbiturates Ur Phencyclidine (PCP) Urine Amphetamine U Benzodiazepine Level Urine Cocaine Urine Marijuana (THC) Ethyl Alcohol 153 H Influenza Type A Ag NEGATIVE Influenza Type B Ag NEGATIVE RSV (PCR) NEGATIVE SARS-CoV-2 (PCR) NEGATIVE 06/08/22 06/08/22 06/08/22 06:53 06:40 06:31 WBC 8.2 RBC 5.03 Hgb 14.6 Hct 47.1 MCV 93.6 MCH 29.0 MCHC 31.0 L RDW 14.2 H Plt Count 386 MPV 10.2 Gran % 71.6 H Immature Gran % (Auto) 0.2 Nucleat RBC Rel Count 0.0 Eos # (Auto) 0.01 Immature Gran # (Auto) 0.02 Absolute Lymphs (auto) 1.50 Absolute Monos (auto) 0.67 Absolute Nucleated RBC 0.00 Lymphocytes % 18.4 L Monocytes % 8.2 Eosinophils % 0.1 Basophils % 1.5 Absolute Granulocytes 5.84 Basophils # 0.12 Sodium Potassium Chloride Carbon Dioxide Anion Gap BUN Creatinine Estimated GFR Glucose POC Glucometer Calcium Magnesium Total Bilirubin AST ALT Alkaline Phosphatase Troponin I Serum Total Protein Albumin Amylase 73 Lipase Urine Color Urine Appearance Urine pH Ur Specific [place] Urine Protein Urine Glucose (UA) Urine Ketones Urine Blood Urine Nitrite Urine Bilirubin Urine Urobilinogen Ur Leukocyte Esterase U Hyaline Cast (Auto) Urine Microscopic RBC Urine Microscopic WBC Ur Epithelial Cells Urine Bacteria Urine Culture Reflexed Urine Opiates Level NEGATIVE Ur Methadone NEGATIVE Urine Barbiturates NEGATIVE Ur Phencyclidine (PCP) NEGATIVE Urine Amphetamine NEGATIVE U Benzodiazepine Level NEGATIVE Urine Cocaine NEGATIVE Urine Marijuana (THC) NEGATIVE Ethyl Alcohol Influenza Type A Ag Influenza Type B Ag RSV (PCR) SARS-CoV-2 (PCR) 06/08/22 06:31 WBC RBC Hgb Hct MCV MCH MCHC RDW Plt Count MPV Gran % Immature Gran % (Auto) Nucleat RBC Rel Count Eos # (Auto) Immature Gran # (Auto) Absolute Lymphs (auto) Absolute Monos (auto) Absolute Nucleated RBC Lymphocytes % Monocytes % Eosinophils % Basophils % Absolute Granulocytes Basophils # Sodium Potassium Chloride Carbon Dioxide Anion Gap BUN Creatinine Estimated GFR Glucose POC Glucometer Calcium Magnesium Total Bilirubin AST ALT Alkaline Phosphatase Troponin I Serum Total Protein Albumin Amylase Lipase Urine Color Yellow Urine Appearance Clear Urine pH 5.5 Ur Specific [place] >=1.030 A Urine Protein Negative Urine Glucose (UA) >=1000 A Urine Ketones 40 A Urine Blood Negative Urine Nitrite Negative Urine Bilirubin Negative Urine Urobilinogen 0.2 Ur Leukocyte Esterase Negative U Hyaline Cast (Auto) NONE SEEN Urine Microscopic RBC 0-2 Urine Microscopic WBC 0-2 Ur Epithelial Cells None Seen Urine Bacteria None Seen Urine Culture Reflexed NO Urine Opiates Level Ur Methadone Urine Barbiturates Ur Phencyclidine (PCP) Urine Amphetamine U Benzodiazepine Level Urine Cocaine Urine Marijuana (THC) Ethyl Alcohol Influenza Type A Ag Influenza Type B Ag RSV (PCR) SARS-CoV-2 (PCR) Orders (Last 24 hours) Category Date Time Status Bedrest TOLERATED Activity 06/08/22 15:23 Active Admit as Inpatient ROUTINE Care 06/08/22 15:23 Active Floating Derrick Operator STAT Care 06/08/22 06:23 Completed EKG-ER Only STAT Care 06/08/22 07:41 Completed Elevate HOB TOLERATED Care 06/08/22 15:23 Active IV Insertion STAT Care 06/08/22 06:22 Completed Neuro Checks Q4H Care 06/08/22 20:00 Active Nursing [Miscellaneous Nursing Order] ROUTINE Care 06/08/22 16:44 Active POCT Glucose Check Q1H Care 06/08/22 15:23 Active POCT Glucose Check STAT Care 06/08/22 11:45 Completed Pulse Oximetry (ED) STAT Care 06/08/22 06:22 Completed Telemetry q4h Care 06/08/22 15:23 Active Weight,Daily 0600 Care 06/08/22 15:23 Active Horticultural Worker/Discharge Plan ROUTINE Cons 06/08/22 15:51 Active Clear Liquid Diet 06/08/22 Lunch Active Nutritional Admission Screen ONCE Diet 06/08/22 15:51 Active ABDOMEN AND PELVIS W/0 CONTRAS [CT] Stat Exams 06/08/22 07:34 Completed CHEST 1 VIEW (PORTABLE) Stat Exams 06/08/22 11:25 Completed AMYLASE Stat Lab 06/08/22 06:40 Completed BMP Q4H Lab 06/08/22 19:00 Ordered BMP Q4H Lab 06/08/22 23:00 Ordered BMP Q4H Lab 06/09/22 03:00 Ordered BMP Q4H Lab 06/09/22 07:00 Ordered BMP Q4H Lab 06/09/22 11:00 Ordered BMP Stat Lab 06/08/22 12:58 Completed BMP Stat Lab 06/08/22 14:55 Completed CBC W DIFF AM.LAB Lab 06/09/22 04:00 Ordered CBC W DIFF Stat Lab 06/08/22 06:53 Completed CMP AM.LAB Lab 06/09/22 04:00 Ordered CMP Stat Lab 06/08/22 06:53 Completed COVID/FLU/RSV Panel Stat Lab 06/08/22 08:10 Completed ETHYL ALCOHOL AM.LAB Lab 06/09/22 04:00 Ordered ETHYL ALCOHOL AM.LAB Lab 06/10/22 04:00 Ordered ETHYL ALCOHOL Stat Lab 06/08/22 06:53 Completed HEMOGLOBIN A1C Routine Lab 06/08/22 06:53 Received LIPASE Stat Lab 06/08/22 06:53 Completed MAG [MAGNESIUM] Urgent Lab 06/08/22 14:55 Completed POCT GLUCOSE Stat Lab 06/08/22 11:38 Completed POCT GLUCOSE Stat Lab 06/08/22 14:36 Completed POCT GLUCOSE Stat Lab 06/08/22 16:03 Completed POCT GLUCOSE Stat Lab 06/08/22 16:59 Completed TROPONIN Q4H Lab 06/08/22 06:53 Completed TROPONIN Q4H Lab 06/08/22 11:44 Completed TROPONIN Q4H Lab 06/08/22 14:45 Completed UA W/RFX UR CULTURE Stat Lab 06/08/22 06:31 Completed Urine Triage Profile Stat Lab 06/08/22 06:31 Completed Acetaminophen 325 mg [Tylenol 325 mg] Med 06/08/22 15:23 Active 650 mg PO Q4H PRN PRN Albuterol 2.5 mg/3 ml Neb [Proventil 2.5 mg/3 ml Neb Med 06/08/22 07:55 Discontinued ] 2.5 mg IH .STK-MED ONE Albuterol 2.5 mg/3 ml Neb [Proventil 2.5 mg/3 ml Neb Med 06/08/22 07:44 Discontinued ] 2.5 mg IH STAT ONE Calcium Gluconate 1000 mg [Calcium Gluconate 10% 1000 [facility] 06/08/22 11:23 Discontinued MG] 1,000 mg IV .STK-MED ONE Calcium Gluconate 1000 mg [Calcium Gluconate 10% 1000 [facility] 06/08/22 09:31 Discontinued MG] 1,000 mg IV STAT ONE D5w-0.45NACL W/ 20Meq KCl [D5W/0.45NS W/ 20mEq KCl 1000 [facility] 06/08/22 17:00 Active ML] 1,000 ml IV 150 mls/hr Furosemide 40 mg/4 ml [Lasix 40 MG/4 ML] [facility] 06/08/22 11:24 Discontinued 40 mg .ROUTE .STK-MED ONE Furosemide 40 mg/4 ml [Lasix 40 MG/4 ML] [facility] 06/08/22 09:30 Discontinued 40 mg IV STAT ONE Insulin Lispro [Humalog] Med 06/08/22 16:00 Active See Dose Instructions SQ UD PRN Insulin Regular in 0.9 % NaCl [Myxredlin 100 Unit/100 Med 06/08/22 13:50 Active ml Bag] 100 unit in 100 ml IV 0.1 unit/kg/hr Insulin Regular in 0.9 % NaCl [Myxredlin 100 Unit/100 Med 06/08/22 12:14 Discontinued ml Bag] 100 unit in 100 ml IV UD Insulin Regular, Human [Humulin R] Med 06/08/22 09:02 Discontinued 12 unit .ROUTE .STK-MED ONE Insulin Regular, Human [Humulin R] Med 06/08/22 08:37 Discontinued 12 unit SQ STAT ONE Lorazepam 2 mg/1 ml [Ativan 2 MG/1 ML VIAL] Med 06/08/22 07:54 Discontinued 1 mg IM STAT ONE Lorazepam 2 mg/1 ml [Ativan 2 MG/1 ML VIAL] Med 06/08/22 15:23 Discontinued 1 mg IV Q2H PRN PRN Lorazepam 2 mg/1 ml [Ativan 2 MG/1 ML VIAL] Med 06/08/22 07:15 Discontin ued 1 mg IV STAT ONE Lorazepam 2 mg/1 ml [Ativan 2 MG/1 ML VIAL] Med 06/08/22 07:19 Discontinued 2 mg .ROUTE .STK-MED ONE Lorazepam 2 mg/1 ml [Ativan 2 MG/1 ML VIAL] Med 06/08/22 15:27 Active See Protocol IV Q2H PRN PRN NaCl 0.9% 1000 ml [Sodium Chloride 0.9% 1000 ML] 1,000 Med 06/08/22 11:24 Discontinued ml .ROUTE UD NaCl 0.9% 1000 ml [Sodium Chloride 0.9% 1000 ML] 1,000 Med 06/08/22 12:49 Discontinued ml .ROUTE UD NaCl 0.9% 1000 ml [Sodium Chloride 0.9% 1000 ML] 1,000 Med 06/08/22 15:23 Discontinued ml IV 150 mls/hr NaCl 0.9% 1000 ml [Sodium Chloride 0.9% 1000 ML] 1,000 Med 06/08/22 09:30 Discontinued ml IV 999 mls/hr Ondansetron HCl 4 mg/2 ml [Zofran 4 MG/2 ML VIAL] Med 06/08/22 15:23 Act kayy 4 mg IV Q6H PRN PRN Pantoprazole 40 mg [Protonix 40 mg IV] Med 06/08/22 15:23 Active 40 mg IV Q24H Patiromer Calcium Sorbitex [Veltassa] Med 06/08/22 07:44 Discontinued 16.8 gm PO STAT STA Patiromer Calcium Sorbitex [Veltassa] Med 06/08/22 07:49 Discontinued 8.4 gm PO .STK-MED ONE Patiromer Calcium Sorbitex [[place]elt[place]] Med 06/08/22 07:51 Discontinued 8.4 gm PO .STK-MED ONE Sodium Bicarbonate 50 Meq Abb* [Sodium Bicarbonate 50 Med 06/08/22 11:24 Discontinued Meq/50 ml Abboject] 50 meq IV .STK-MED ONE Sodium Bicarbonate 50 Meq Abb* [Sodium Bicarbonate 50 Med 06/08/22 09:30 Discontinued Meq/50 ml Abboject] 50 meq IV STAT ONE EKG REPEAT IN AM RT 06/08/22 15:23 Active Pulse Oximetry ROUTINE RT 06/08/22 15:23 Completed Transfer Order Routine Transfer 06/08/22 Completed Code(s): E87.29 - OTHER ACIDOSIS
[2022-06-08 18:11] VITALS: O2SAT 95
[2022-06-08 19:13] LABS: ANION GAP 15.7 MEQ/L (5-15); BLOOD UREA NITROGEN 19 mg/dL (9-20); CHLORIDE 90 mmol/L (98-107); Carbon Dioxide 29 mmol/L (22-30); Creatinine 1 0.83 mg/dL (0.66-1.25); EST GLOMERULAR FILTRATION RATE > 60.0 ML/MIN; Glucose 271 mg/dL (74-106); Potassium 3.8 mmol/L (3.5-5.1); SODIUM 131 mmol/L (137-145)
[2022-06-08 19:32] LABS: Calcium 8.6 mg/dL (8.4-10.2)
[2022-06-08 23:44] LABS: ANION GAP 10.9 MEQ/L (5-15); BLOOD UREA NITROGEN 17 mg/dL (9-20); CHLORIDE 92 mmol/L (98-107); Calcium 8.5 mg/dL (8.4-10.2); Carbon Dioxide 33 mmol/L (22-30); Creatinine 1 0.76 mg/dL (0.66-1.25); EST GLOMERULAR FILTRATION RATE > 60.0 ML/MIN; Glucose 287 mg/dL (74-106); Potassium 3.5 mmol/L (3.5-5.1); SODIUM 132 mmol/L (137-145)
[2022-06-09] MEDS: Ativan 2 MG/1 ML VIAL IV PRN ×6 (00:08→08:49)
[2022-06-09] MEDS ORDERED: Versed 50 MG/ 10 Ml MDV ONE (00:16)
[2022-06-09] MEDS ORDERED: Sodium Chloride 0.9% 250 ML 0 ML IV ONE (00:16)
[2022-06-09] MEDS ORDERED: D50W 50 ml Abboject IV ONE (04:09)
[2022-06-09] MEDS ORDERED: D50W 50 ml Abboject IV PRN (04:14)
[2022-06-09 05:37] LABS: Absolute Neutrophil Ct (ANC) 3.99 x10^3/uL (1.4-6.9); BASOPHIL % 0.6 % (0.0-0.4); Basophil (Absolute #) 0.04 x10^3/uL (0-0.4); Eosinophil % 1.1 % (0.00-5.0); Eosinophil (Absolute #) 0.08 x10^3/uL (0-0.5); Hematocrit 34.9 % (42-50); Hemoglobin 11.9 g/dL (12.5-18.0); IMMATURE GRAN # 0.02 x10^3u/L (0.00-0.03); IMMATURE GRAN % 0.3 % (0.00-0.4); Lymphocyte (Absolute #) 1.73 x10^3/uL (1.0-4.6); Lymphocytes % 24.7 % (24.0-44.0); Mean Cell Volume 85.1 fL (78-100); Mean Corpuscular Hgb Concent. 34.1 g/dL (32-36); Monocyte (Absolute #) 1.13 x10^3/uL (0.0-1.3); Monocytes % 16.2 % (0.0-12.0); Neutrophil % 57.1 % (36.0-66.0); Platelet Count 235 x10^3/uL (150-450); Red Cell Distribution Width 13.8 % (11.5-14.0)
[2022-06-09 06:00] LABS: ALBUMIN 3.6 g/dL (3.5-5.0); ALKALINE PHOSPHATASE 113 U/L (38-126); ANION GAP 12.1 MEQ/L (5-15); BLOOD UREA NITROGEN 14 mg/dL (9-20); CHLORIDE 94 mmol/L (98-107); Calcium 8.3 mg/dL (8.4-10.2); Carbon Dioxide 29 mmol/L (22-30); Creatinine 1 0.69 mg/dL (0.66-1.25); EST GLOMERULAR FILTRATION RATE > 60.0 ML/MIN; Glucose 207 mg/dL (74-106); SGOT/AST 29 U/L (17-59); SGPT/ALT 18 U/L (0-50); SODIUM 132 mmol/L (137-145); Total Protein 6.3 g/dL (6.3-8.2)
[2022-06-09] MEDS ORDERED: Sodium Chloride 0.9% 1000 ML 1,000 ML IV SCH (06:30)
[2022-06-09] MEDS: D5W/0.45NS W/ 20mEq KCl 1000 ML 1,000 ML IV SCH (07:36)
[2022-06-09 08:27] VITALS: BP 134/80; PULSE 109
--- NOTE | 2022-06-09 13:28 | PCM.DS ---
Discharge Summary Date of Admission: 06/08/22 13:08 Admitting Physician: MOISES ROGERS Primary Care Provider: NO FAMILY DOCTOR Allergies Allergies No Known Drug Allergies Allergy (Unverified 06/08/22 05:50) Hospital Summary - Hospital Course Hospital Course: Chief Complaint Diagnosis DKA, HYPONATREMIA, HYPERKALEMIA, ALCOHOL INTOXICATION Allergies Allergy/AdvReac Type Severity Reaction Status Date / Time No Known Drug Allergies Allergy Unverified 06/08/22 05:50 Vital Signs (Last 24 hours) Temp Pulse Resp BP BP Pulse Ox 06/09/22 08:00 109 H 20 134/80 06/09/22 06:00 92 H 14 152/71 06/09/22 05:00 98.0 F 92 H 18 116/88 06/09/22 04:00 92 H 18 06/09/22 02:00 92 H 18 116/88 06/09/22 00:08 111 H 18 137/84 06/09/22 00:01 111 H 06/09/22 00:00 98.0 F 98 H 22 137/84 06/08/22 22:25 108 H 28 H 143/82 06/08/22 22:00 98.0 F 96 H 24 143/82 06/08/22 20:28 110 H 37 H 150/86 06/08/22 20:00 98.0 F 108 H 28 H 128/84 06/08/22 18:00 101 H 34 H 128/84 95 06/08/22 15:35 98.0 F 122 H 21 171/93 97 06/08/22 15:00 94 H 23 140/72 97 06/08/22 14:00 110 H 25 H 140/72 97 Home Medications Medication Instructions Recorded Confirmed Last Taken Type No Reportable Medications [No 06/08/22 06/08/22 Unknown History Reported Medications] Current Medications Discontinued Medications Generic Name Dose Route Start Last Admin Trade Name Freq PRN Reason Stop Dose Admin Acetaminophen 650 mg 06/08/22 15:23 06/08/22 23:45 Acetaminophen 325 Mg Tablet PO 07/08/22 15:22 650 mg Q4H PRN PRN Administration PAIN, FEVER, HEADACHE Albuterol Sulfate 2.5 mg 06/08/22 07:44 06/08/22 07:59 Albuterol Sulfate 2.5 Mg/3 Ml Neb IH 06/08/22 07:45 2.5 mg STAT ONE Administration Albuterol Sulfate Confirm 06/08/22 07:55 Albuterol Sulfate 2.5 Mg/3 Ml Neb Administered 06/08/22 07:56 Dose 2.5 mg IH .STK-MED ONE Calcium Gluconate 1,000 mg 06/08/22 09:31 06/08/22 11:28 Calcium Gluconate 1000 Mg/10 Ml Vial IV 06/08/22 09:32 1,000 mg STAT ONE Administration Calcium Gluconate Confirm 06/08/22 11:23 Calcium Gluconate 1000 Mg/10 Ml Vial Administered 06/08/22 11:24 Dose 1,000 mg IV .STK-MED ONE Dextrose Confirm 06/09/22 04:09 Dextrose 50%-Water 50 Ml Abboject Administered 06/09/22 04:10 Dose 50 ml IV .STK-MED ONE Dextrose 25 ml 06/09/22 04:14 06/09/22 04:16 Dextrose 50%-Water 50 Ml Abboject IV 07/09/22 04:13 25 ml PRN PRN Administration HYPOGLYCEMIA Furosemide 40 mg 06/08/22 09:30 06/08/22 11:28 Furosemide 40 Mg/4 Ml Vial IV 06/08/22 09:31 40 mg STAT ONE Administration Furosemide Confirm 06/08/22 11:24 Furosemide 40 Mg/4 Ml Vial Administered 06/08/22 11:25 Dose 40 mg .ROUTE .STK-MED ONE Sodium Chloride 1,000 mls @ 999 mls/hr 06/08/22 09:30 06/08/22 12:44 Sodium Chloride 0.9% 1000 Ml IV 06/08/22 10:30 Infused .Q1H1M STA Infusion Sodium Chloride Confirm 06/08/22 11:24 Sodium Chloride 0.9% 1000 Ml Administered 06/08/22 11:25 Dose 1,000 mls @ ud .ROUTE .STK-MED ONE INSULIN REGULAR IN 0.9 % NACL Confirm 06/08/22 12:14 Myxredlin 100 Unit/100 Ml Bag Administered 06/08/22 12:15 Dose 100 unit in 100 mls @ ud IV .STK-MED ONE Sodium Chloride Confirm 06/08/22 12:49 Sodium Chloride 0.9% 1000 Ml Administered 06/08/22 12:50 Dose 1,000 mls @ ud .ROUTE .STK-MED ONE INSULIN REGULAR IN 0.9 % NACL 100 unit in 100 mls @ 9.3 mls/hr 06/08/22 13:50 06/08/22 21:39 Myxredlin 100 Unit/100 Ml Bag IV 07/08/22 13:49 0.06 unit/kg/hr .[id number] PRN 6 mls/hr HYPERGLYCEMIA Titration Protocol 0.1 UNIT/KG/HR Sodium Chloride 1,000 mls @ 150 mls/hr 06/08/22 15:23 06/08/22 16:49 Sodium Chloride 0.9% 1000 Ml IV 07/08/22 15:22 Not Given .Q6H40M PATIENCE Potassium Chloride/Dextrose/Sod Cl 1,000 mls @ 150 mls/hr 06/08/22 17:00 06/09/22 07:36 D5w/0.45ns W/ 20meq Kcl 1000 Ml IV 07/08/22 16:59 Not Given .Q6H40M PATIENCE Sodium Chloride Confirm 06/08/22 23:06 Sodium Chloride 0.9% 1000 Ml Administered 06/08/22 23:07 Dose 1,000 mls @ ud .ROUTE .STK-MED ONE Sodium Chloride 1,000 mls @ 75 mls/hr 06/09/22 06:30 06/09/22 06:29 Sodium Chloride 0.9% 1000 Ml IV 07/09/22 06:29 75 mls/hr .[id number] PATIENCE Administration Insulin Human Lispro 0 unit 06/08/22 16:00 06/09/22 07:20 Insulin Lispro 1 Unit SQ 07/08/22 15:59 9 unit UD PRN Administration Insulin Human Regular 12 unit 06/08/22 08:37 06/08/22 09:03 Insulin Regular, Human 1 Unit SQ 06/08/22 08:38 12 unit STAT ONE Administration Insulin Human Regular Confirm 06/08/22 09:02 Insulin Regular, Human 1 Unit Administered 06/08/22 09:03 Dose 12 unit .ROUTE .STK-MED ONE Lorazepam 1 mg 06/08/22 07:15 06/08/22 07:20 Lorazepam 2 Mg/1 Ml 2 Mg Vial IV 06/08/22 07:16 1 mg STAT ONE Administration Lorazepam Confirm 06/08/22 07:19 Lorazepam 2 Mg/1 Ml 2 Mg Vial Administered 06/08/22 07:20 Dose 2 mg .ROUTE .STK-MED ONE Lorazepam 1 mg 06/08/22 07:54 06/08/22 07:58 Lorazepam 2 Mg/1 Ml 2 Mg Vial IM 06/08/22 07:55 1 mg STAT ONE Administration Lorazepam 1 mg 06/08/22 15:23 Lorazepam 2 Mg/1 Ml 2 Mg Vial IV 07/08/22 15:22 Q2H PRN PRN ANXIETY/AGITATION Lorazepam 0 mg 06/08/22 15:27 06/09/22 08:49 Lorazepam 2 Mg/1 Ml 2 Mg Vial IV 07/08/22 15:26 2 mg Q2H PRN PRN Administration CIWA SCORE Protocol Ondansetron HCl 4 mg 06/08/22 15:23 Ondansetron Hcl 4 Mg/2 Ml Vial IV 07/08/22 15:22 Q6H PRN PRN NAUSEA/VOMITING Pantoprazole Sodium 40 mg 06/08/22 15:23 06/08/22 16:20 Pantoprazole 40 Mg Vial IV 07/08/22 15:22 40 mg Q24H PATIENCE Administration Patiromer 16.8 gm 06/08/22 07:44 06/08/22 07:50 Patiromer Calcium Sorbitex 8.4 Gm Powd.Pack PO 06/08/22 07:45 16.8 gm STAT STA Administration Patiromer Confirm 06/08/22 07:49 Patiromer Calcium Sorbitex 8.4 Gm Powd.Pack Administered 06/08/22 07:50 Dose 8.4 gm PO .STK-MED ONE Patiromer Confirm 06/08/22 07:51 Patiromer Calcium Sorbitex 8.4 Gm Powd.Pack Administered 06/08/22 07:52 Dose 8.4 gm PO .STK-MED ONE Sodium Bicarbonate 50 meq 06/08/22 09:30 06/08/22 11:28 Sodium Bicarbonate 1 Meq/Ml 50ml Syringe IV 06/08/22 09:31 50 meq STAT ONE Administration Sodium Bicarbonate Confirm 06/08/22 11:24 Sodium Bicarbonate 1 Meq/Ml 50ml Syringe Administered 06/08/22 11:25 Dose 50 meq IV .STK-MED ONE Intake & Output (Last 24 hours) 06/07/22 06/08/22 06/09/22 06/10/22 11:59 11:59 11:59 11:59 Intake Total 18900 Output Total 2550 Balance 8034 Weight 93 kg 92 kg Laboratory Results (Last 24 hours) 06/09/22 06/09/22 06/09/22 07:17 06:12 05:13 WBC RBC Hgb Hct MCV MCH MCHC RDW Plt Count MPV Gran % Immature Gran % (Auto) Nucleat RBC Rel Count Eos # (Auto) Immature Gran # (Auto) Absolute Lymphs (auto) Absolute Monos (auto) Absolute Nucleated RBC Lymphocytes % Monocytes % Eosinophils % Basophils % Absolute Granulocytes Basophils # Sodium Potassium Chloride Carbon Dioxide Anion Gap BUN Creatinine Estimated GFR Glucose POC Glucometer 301 H 311 H Hemoglobin A1c Calcium Magnesium Total Bilirubin AST ALT Alkaline Phosphatase Troponin I Serum Total Protein Albumin Ethyl Alcohol < 10 06/09/22 06/09/22 06/09/22 05:13 05:13 05:05 WBC 7.0 RBC 4.10 Hgb 11.9 L Hct 34.9 L MCV 85.1 D MCH 29.0 MCHC 34.1 RDW 13.8 Plt Count 235 D MPV 10.0 Gran % 57.1 Immature Gran % (Auto) 0.3 Nucleat RBC Rel Count 0.0 Eos # (Auto) 0.08 Immature Gran # (Auto) 0.02 Absolute Lymphs (auto) 1.73 Absolute Monos (auto) 1.13 Absolute Nucleated RBC 0.00 Lymphocytes % 24.7 Monocytes % 16.2 H Eosinophils % 1.1 Basophils % 0.6 Absolute Granulocytes 3.99 Basophils # 0.04 Sodium 132 L Potassium 4.0 Chloride 94 L Carbon Dioxide 29 Anion Gap 12.1 BUN 14 Creatinine 0.69 Estimated GFR > 60.0 Glucose 207 H POC Glucometer 164 H Hemoglobin A1c Calcium 8.3 L Magnesium Total Bilirubin 1.10 AST 29 ALT 18 Alkaline Phosphatase 113 Troponin I Serum Total Protein 6.3 Albumin 3.6 Ethyl Alcohol 06/09/22 06/09/22 06/09/22 04:07 03:21 02:12 WBC RBC Hgb Hct MCV MCH MCHC RDW Plt Count MPV Gran % Immature Gran % (Auto) Nucleat RBC Rel Count Eos # (Auto) Immature Gran # (Auto) Absolute Lymphs (auto) Absolute Monos (auto) Absolute Nucleated RBC Lymphocytes % Monocytes % Eosinophils % Basophils % Absolute Granulocytes Basophils # Sodium Potassium Chloride Carbon Dioxide Anion Gap BUN Creatinine Estimated GFR Glucose POC Glucometer 68 L 107 H 131 H Hemoglobin A1c Calcium Magnesium Total Bilirubin AST ALT Alkaline Phosphatase Troponin I Serum Total Protein Albumin Ethyl Alcohol 06/09/22 06/09/22 06/08/22 01:10 00:18 23:25 WBC RBC Hgb Hct MCV MCH MCHC RDW Plt Count MPV Gran % Immature Gran % (Auto) Nucleat RBC Rel Count Eos # (Auto) Immature Gran # (Auto) Absolute Lymphs (auto) Absolute Monos (auto) Absolute Nucleated RBC Lymphocytes % Monocytes % Eosinophils % Basophils % Absolute Granulocytes Basophils # Sodium 132 L Potassium 3.5 Chloride 92 L Carbon Dioxide 33 H Anion Gap 10.9 BUN 17 Creatinine 0.76 Estimated GFR > 60.0 Glucose 287 H POC Glucometer 160 H 229 H Hemoglobin A1c Calcium 8.5 Magnesium Total Bilirubin AST ALT Alkaline Phosphatase Troponin I Serum Total Protein Albumin Ethyl Alcohol 06/08/22 06/08/22 06/08/22 23:03 22:10 21:23 WBC RBC Hgb Hct MCV MCH MCHC RDW Plt Count MPV Gran % Immature Gran % (Auto) Nucleat RBC Rel Count Eos # (Auto) Immature Gran # (Auto) Absolute Lymphs (auto) Absolute Monos (auto) Absolute Nucleated RBC Lymphocytes % Monocytes % Eosinophils % Basophils % Absolute Granulocytes Basophils # Sodium Potassium Chloride Carbon Dioxide Anion Gap BUN Creatinine Estimated GFR Glucose POC Glucometer 423 H 364 H 258 H Hemoglobin A1c Calcium Magnesium Total Bilirubin AST ALT Alkaline Phosphatase Troponin I Serum Total Protein Albumin Ethyl Alcohol 06/08/22 06/08/22 06/08/22 20:39 18:56 18:45 WBC RBC Hgb Hct MCV MCH MCHC RDW Plt Count MPV Gran % Immature Gran % (Auto) Nucleat RBC Rel Count Eos # (Auto) Immature Gran # (Auto) Absolute Lymphs (auto) Absolute Monos (auto) Absolute Nucleated RBC Lymphocytes % Monocytes % Eosinophils % Basophils % Absolute Granulocytes Basophils # Sodium 131 L Potassium 3.8 Chloride 90 L Carbon Dioxide 29 Anion Gap 15.7 H BUN 19 Creatinine 0.83 Estimated GFR > 60.0 Glucose 271 H POC Glucometer 253 H 249 H Hemoglobin A1c Calcium 8.6 D Magnesium Total Bilirubin AST ALT Alkaline Phosphatase Troponin I Serum Total Protein Albumin Ethyl Alcohol 06/08/22 06/08/22 06/08/22 18:01 16:59 16:03 WBC RBC Hgb Hct MCV MCH MCHC RDW Plt Count MPV Gran % Immature Gran % (Auto) Nucleat RBC Rel Count Eos # (Auto) Immature Gran # (Auto) Absolute Lymphs (auto) Absolute Monos (auto) Absolute Nucleated RBC Lymphocytes % Monocytes % Eosinophils % Basophils % Absolute Granulocytes Basophils # Sodium Potassium Chloride Carbon Dioxide Anion Gap BUN Creatinine Estimated GFR Glucose POC Glucometer 325 H 186 H 209 H Hemoglobin A1c Calcium Magnesium Total Bilirubin AST ALT Alkaline Phosphatase Troponin I Serum Total Protein Albumin Ethyl Alcohol 06/08/22 06/08/22 06/08/22 14:55 14:55 14:45 WBC RBC Hgb Hct MCV MCH MCHC RDW Plt Count MPV Gran % Immature Gran % (Auto) Nucleat RBC Rel Count Eos # (Auto) Immature Gran # (Auto) Absolute Lymphs (auto) Absolute Monos (auto) Absolute Nucleated RBC Lymphocytes % Monocytes % Eosinophils % Basophils % Absolute Granulocytes Basophils # Sodium 134 L Potassium 3.8 Chloride 92 L Carbon Dioxide 26 Anion Gap 20.0 H BUN 21 H Creatinine 0.96 Estimated GFR > 60.0 Glucose 252 H POC Glucometer Hemoglobin A1c Calcium 10.2 Magnesium 2.3 Total Bilirubin AST ALT Alkaline Phosphatase Troponin I < 0.012 Serum Total Protein Albumin Ethyl Alcohol 06/08/22 06/08/22 06/08/22 14:36 12:58 06:53 WBC RBC Hgb Hct MCV MCH MCHC RDW Plt Count MPV Gran % Immature Gran % (Auto) Nucleat RBC Rel Count Eos # (Auto) Immature Gran # (Auto) Absolute Lymphs (auto) Absolute Monos (auto) Absolute Nucleated RBC Lymphocytes % Monocytes % Eosinophils % Basophils % Absolute Granulocytes Basophils # Sodium 132 L Potassium 4.1 D Chloride 88 L Carbon Dioxide 20 L Anion Gap 28.0 H BUN 21 H Creatinine 0.97 Estimated GFR > 60.0 Glucose 418 H POC Glucometer 288 H Hemoglobin A1c 9.76 H Calcium 9.5 Magnesium Total Bilirubin AST ALT Alkaline Phosphatase Troponin I Serum Total Protein Albumin Ethyl Alcohol Orders (Last 24 hours) Category Date Time Status Bedrest TOLERATED Activity 06/08/22 15:23 Completed Admit as Inpatient ROUTINE Care 06/08/22 15:23 Completed Elevate HOB TOLERATED Care 06/08/22 15:23 Completed Neuro Checks Q4H Care 06/08/22 20:00 Completed Nursing [Miscellaneous Nursing Order] ROUTINE Care 06/08/22 16:44 Completed POCT Glucose Check Q4H Care 06/08/22 15:[address] in Observation ROUTINE Care 06/08/22 13:08 Active Telemetry q4h Care 06/08/22 15:23 Completed Weight,Daily 0600 Care 06/08/22 15:23 Completed Refrigerated [employer] Driver/Discharge Plan ROUTINE Cons 06/08/22 15:51 Completed House Regular Diet Diet 06/09/22 Breakfast Completed Nutritional Admission Screen ONCE Diet 06/08/22 15:51 Completed Discharge Routine Discharge 06/09/22 Ordered BMP Q4H Lab 06/08/22 18:45 Completed BMP Q4H Lab 06/08/22 23:25 Completed BMP Stat Lab 06/08/22 12:58 Completed BMP Stat Lab 06/08/22 14:55 Completed CBC W DIFF AM.LAB Lab 06/09/22 05:13 Completed CMP AM.LAB Lab 06/09/22 05:13 Completed ETHYL ALCOHOL AM.LAB Lab 06/09/22 05:13 Completed MAG [MAGNESIUM] Urgent Lab 06/08/22 14:55 Completed POCT GLUCOSE Stat Lab 06/08/22 14:36 Completed POCT GLUCOSE Stat Lab 06/08/22 16:03 Completed POCT GLUCOSE Stat Lab 06/08/22 16:59 Completed POCT GLUCOSE Stat Lab 06/08/22 18:01 Completed POCT GLUCOSE Stat Lab 06/08/22 18:56 Completed POCT GLUCOSE Stat Lab 06/08/22 20:39 Completed POCT GLUCOSE Stat Lab 06/08/22 21:23 Completed POCT GLUCOSE Stat Lab 06/08/22 22:10 Completed POCT GLUCOSE Stat Lab 06/08/22 23:03 Completed POCT GLUCOSE Stat Lab 06/09/22 00:18 Completed POCT GLUCOSE Stat Lab 06/09/22 01:10 Completed POCT GLUCOSE Stat Lab 06/09/22 02:12 Completed POCT GLUCOSE Stat Lab 06/09/22 03:21 Completed POCT GLUCOSE Stat Lab 06/09/22 04:07 Completed POCT GLUCOSE Stat Lab 06/09/22 05:05 Completed POCT GLUCOSE Stat Lab 06/09/22 06:12 Completed POCT GLUCOSE Stat Lab 06/09/22 07:17 Completed TROPONIN Q4H Lab 06/08/22 14:45 Completed Acetaminophen 325 mg [Tylenol 325 mg] Med 06/08/22 15:23 Discontinued 650 mg PO Q4H PRN PRN D5w-0.45NACL W/ 20Meq KCl [D5W/0.45NS W/ 20mEq KCl 1000 Med 06/08/22 17:00 Discontinued ML] 1,000 ml IV 150 mls/hr Dextrose 50%-Water Syringe [D50W 50 ml Abboject] Med 06/09/22 04:14 Discontinued 25 ml IV PRN PRN Dextrose 50%-Water Syringe [D50W 50 ml Abboject] Med 06/09/22 04:09 Discontinued 50 ml IV .STK-MED ONE Insulin Lispro [Humalog] Med 06/08/22 16:00 Discontinued See Dose Instructions SQ UD PRN Insulin Regular in 0.9 % NaCl [Myxredlin 100 Unit/100 Med 06/08/22 13:50 Discontinued ml Bag] 100 unit in 100 ml IV 0.1 unit/kg/hr Lorazepam 2 mg/1 ml [Ativan 2 MG/1 ML VIAL] Med 06/08/22 15:23 Discontinued 1 mg IV Q2H PRN PRN Lorazepam 2 mg/1 ml [Ativan 2 MG/1 ML VIAL] Med 06/08/22 15:27 Discontinued See Protocol IV Q2H PRN PRN NaCl 0.9% 1000 ml [Sodium Chloride 0.9% 1000 ML] 1,000 Med 06/08/22 12:49 Discontinued ml .ROUTE UD NaCl 0.9% 1000 ml [Sodium Chloride 0.9% 1000 ML] 1,000 Med 06/08/22 23:06 Discontinued ml .ROUTE UD NaCl 0.9% 1000 ml [Sodium Chloride 0.9% 1000 ML] 1,000 Med 06/08/22 15:23 Discontinued ml IV 150 mls/hr NaCl 0.9% 1000 ml [Sodium Chloride 0.9% 1000 ML] 1,000 Med 06/09/22 06:30 Discontinued ml IV 75 mls/hr Ondansetron HCl 4 mg/2 ml [Zofran 4 MG/2 ML VIAL] Med 06/08/22 15:23 Discontinued 4 mg IV Q6H PRN PRN Pantoprazole 40 mg [Protonix 40 mg IV] Med 06/08/22 15:23 Discontinued 40 mg IV Q24H EKG REPEAT IN AM RT 06/08/22 15:23 Completed Pulse Oximetry ROUTINE RT 06/08/22 15:23 Completed Patient Care Notes (Last 24 hours) 06/09/22 10:11 Nursing Note by Dalia Lambert pt's mother, dahlia, at bedside and updated on pt's condition and severity of pt's rerusal for treatment. verbalized understanding. pt continues to demand to leave AMA. AMA pap[ers signed and TLC dc'd. Initialized on 06/09/22 10:11 - END OF NOTE 06/09/22 09:33 Nursing Note by Dalia Lambert greenhouse worker Julien Sears rn at bedside and attempted to talk patient into staying in hospital. pt continues to say "nope, i'm leaving" landscape supervisor explained the risks of leaving hospital in his condition to no avail. Initialized on 06/09/22 09:33 - END OF NOTE 06/09/22 09:22 Nursing Note by Dalia Lambert pt says he is leaving and his is on her way to pick him up. explained to pt how dangerous it is for him to leave in the condition he is in. that he could if not treated for dt's. spoke with dr rogers who says pt will have to sign out AMA. explained this to pt who says " i'm leaving, she's on the way, and i will get some help. i have to get out of here." explained to pt again that it is dangerous for him to leave like this but he continues to say, "no, no, i'm leaving". Initialized on 06/09/22 09:22 - END OF NOTE 06/09/22 09:00 Nursing Note by Dalia Lambert pt received very anxious and yelling out. ciwa score 37. 2 mg ativan given [id number] in attempt to calm pt down. Initialized on 06/09/22 09:00 - END OF NOTE 06/09/22 04:25 Nursing Note by Jana Lazaro Pt at 0400 glucose check was 68. insuling gtt stopped and d50 1/2 amp given per protocol and IVF increased to 200ml per hour. Dr Short was called and notified. Initialized on 06/09/22 04:25 - END OF NOTE - Vitals & Intake/Output Vital Signs: Vital Signs Temperature 98.0 F 06/09/22 05:00 Pulse Rate 109 H 06/09/22 08:00 Respiratory Rate 20 06/09/22 08:00 Blood Pressure 134/80 06/09/22 08:00 O2 Sat by Pulse Oximetry 95 06/08/22 18:00 Intake & Output: Intake & Output 06/07/22 06/08/22 06/09/22 06/10/22 11:59 11:59 11:59 11:59 Intake Total 66981 Output Total 2550 Balance 8034 Weight 93 kg 92 kg - Lab Result Diagrams: 06/09/22 05:13 06/09/22 05:13 Lab Results-Last 24 Hrs: Lab Results-Last 24 Hours 06/08/22 06/08/22 06/08/22 Range/Units 06:53 12:58 14:36 WBC (4.0-10.5) x10^3/uL RBC (4.1-5.6) x10^6/uL Hgb (12.5-18.0) g/dL Hct (42-50) % MCV (78-100) fL MCH (26-32) pg MCHC (32-36) g/dL RDW (11.5-14.0) % Plt Count (150-450) x10^3/uL MPV (7.5-11.0) fL Gran % (36.0-66.0) % Immature Gran % (Auto) (0.00-0.4) % Nucleat RBC Rel Count (0.00-0.1) % Eos # (Auto) (0-0.5) x10^3/uL Immature Gran # (Auto) (0.00-0.03) x10^3u/L Absolute Lymphs (auto) (1.0-4.6) x10^3/uL Absolute Monos (auto) (0.0-1.3) x10^3/uL Absolute Nucleated RBC (0.00-0.01) x10^3u/L Lymphocytes % (24.0-44.0) % Monocytes % (0.0-12.0) % Eosinophils % (0.00-5.0) % Basophils % (0.0-0.4) % Absolute Granulocytes (1.4-6.9) x10^3/uL Basophils # (0-0.4) x10^3/uL Sodium 132 L (137-145) mmol/L Potassium 4.1 D (3.5-5.1) mmol/L Chloride 88 L (98-107) mmol/L Carbon Dioxide 20 L (22-30) mmol/L Anion Gap 28.0 H (5-15) MEQ/L BUN 21 H (9-20) mg/dL Creatinine 0.97 (0.66-1.25) mg/dL Estimated GFR > 60.0 ML/MIN Glucose 418 H (74-106) mg/dL POC Glucometer 288 H (74 to 106) mg/dL Hemoglobin A1c 9.76 H (4.5-6.0) % Calcium 9.5 (8.4-10.2) mg/dL Magnesium (1.6-2.3) mg/dL Total Bilirubin (0.2-1.3) mg/dL AST (17-59) U/L ALT (0-50) U/L Alkaline Phosphatase (38-126) U/L Troponin I (0.000-0.034) ng/mL Serum Total Protein (6.3-8.2) g/dL Albumin (3.5-5.0) g/dL Ethyl Alcohol (0-10) mg/dL 06/08/22 06/08/22 06/08/22 Range/Units 14:45 14:55 14:55 WBC (4.0-10.5) x10^3/uL RBC (4.1-5.6) x10^6/uL Hgb (12.5-18.0) g/dL Hct (42-50) % MCV (78-100) fL MCH (26-32) pg MCHC (32-36) g/dL RDW (11.5-14.0) % Plt Count (150-450) x10^3/uL MPV (7.5-11.0) fL Gran % (36.0-66.0) % Immature Gran % (Auto) (0.00-0.4) % Nucleat RBC Rel Count (0.00-0.1) % Eos # (Auto) (0-0.5) x10^3/uL Immature Gran # (Auto) (0.00-0.03) x10^3u/L Absolute Lymphs (auto) (1.0-4.6) x10^3/uL Absolute Monos (auto) (0.0-1.3) x10^3/uL Absolute Nucleated RBC (0.00-0.01) x10^3u/L Lymphocytes % (24.0-44.0) % Monocytes % (0.0-12.0) % Eosinophils % (0.00-5.0) % Basophils % (0.0-0.4) % Absolute Granulocytes (1.4-6.9) x10^3/uL Basophils # (0-0.4) x10^3/uL Sodium 134 L (137-145) mmol/L Potassium 3.8 (3.5-5.1) mmol/L Chloride 92 L (98-107) mmol/L Carbon Dioxide 26 (22-30) mmol/L Anion Gap 20.0 H (5-15) MEQ/L BUN 21 H (9-20) mg/dL Creatinine 0.96 (0.66-1.25) mg/dL Estimated GFR > 60.0 ML/MIN Glucose 252 H (74-106) mg/dL POC Glucometer (74 to 106) mg/dL Hemoglobin A1c (4.5-6.0) % Calcium 10.2 (8.4-10.2) mg/dL Magnesium 2.3 (1.6-2.3) mg/dL Total Bilirubin (0.2-1.3) mg/dL AST (17-59) U/L ALT (0-50) U/L Alkaline Phosphatase (38-126) U/L Troponin I < 0.012 (0.000-0.034) ng/mL Serum Total Protein (6.3-8.2) g/dL Albumin (3.5-5.0) g/dL Ethyl Alcohol (0-10) mg/dL 06/08/22 06/08/22 06/08/22 Range/Units 16:03 16:59 18:01 WBC (4.0-10.5) x10^3/uL RBC (4.1-5.6) x10^6/uL Hgb (12.5-18.0) g/dL Hct (42-50) % MCV (78-100) fL MCH (26-32) pg MCHC (32-36) g/dL RDW (11.5-14.0) % Plt Count (150-450) x10^3/uL MPV (7.5-11.0) fL Gran % (36.0-66.0) % Immature Gran % (Auto) (0.00-0.4) % Nucleat RBC Rel Count (0.00-0.1) % Eos # (Auto) (0-0.5) x10^3/uL Immature Gran # (Auto) (0.00-0.03) x10^3u/L Absolute Lymphs (auto) (1.0-4.6) x10^3/uL Absolute Monos (auto) (0.0-1.3) x10^3/uL Absolute Nucleated RBC (0.00-0.01) x10^3u/L Lymphocytes % (24.0-44.0) % Monocytes % (0.0-12.0) % Eosinophils % (0.00-5.0) % Basophils % (0.0-0.4) % Absolute Granulocytes (1.4-6.9) x10^3/uL Basophils # (0-0.4) x10^3/uL Sodium (137-145) mmol/L Potassium (3.5-5.1) mmol/L Chloride (98-107) mmol/L Carbon Dioxide (22-30) mmol/L Anion Gap (5-15) MEQ/L BUN (9-20) mg/dL Creatinine (0.66-1.25) mg/dL Estimated GFR ML/MIN Glucose (74-106) mg/dL POC Glucometer 209 H 186 H 325 H (74 to 106) mg/dL Hemoglobin A1c (4.5-6.0) % Calcium (8.4-10.2) mg/dL Magnesium (1.6-2.3) mg/dL Total Bilirubin (0.2-1.3) mg/dL AST (17-59) U/L ALT (0-50) U/L Alkaline Phosphatase (38-126) U/L Troponin I (0.000-0.034) ng/mL Serum Total Protein (6.3-8.2) g/dL Albumin (3.5-5.0) g/dL Ethyl Alcohol (0-10) mg/dL 06/08/22 06/08/22 06/08/22 Range/Units 18:45 18:56 20:39 WBC (4.0-10.5) x10^3/uL RBC (4.1-5.6) x10^6/uL Hgb (12.5-18.0) g/dL Hct (42-50) % MCV (78-100) fL MCH (26-32) pg MCHC (32-36) g/dL RDW (11.5-14.0) % Plt Count (150-450) x10^3/uL MPV (7.5-11.0) fL Gran % (36.0-66.0) % Immature Gran % (Auto) (0.00-0.4) % Nucleat RBC Rel Count (0.00-0.1) % Eos # (Auto) (0-0.5) x10^3/uL Immature Gran # (Auto) (0.00-0.03) x10^3u/L Absolute Lymphs (auto) (1.0-4.6) x10^3/uL Absolute Monos (auto) (0.0-1.3) x10^3/uL Absolute Nucleated RBC (0.00-0.01) x10^3u/L Lymphocytes % (24.0-44.0) % Monocytes % (0.0-12.0) % Eosinophils % (0.00-5.0) % Basophils % (0.0-0.4) % Absolute Granulocytes (1.4-6.9) x10^3/uL Basophils # (0-0.4) x10^3/uL Sodium 131 L (137-145) mmol/L Potassium 3.8 (3.5-5.1) mmol/L Chloride 90 L (98-107) mmol/L Carbon Dioxide 29 (22-30) mmol/L Anion Gap 15.7 H (5-15) MEQ/L BUN 19 (9-20) mg/dL Creatinine 0.83 (0.66-1.25) mg/dL Estimated GFR > 60.0 ML/MIN Glucose 271 H (74-106) mg/dL POC Glucometer 249 H 253 H (74 to 106) mg/dL Hemoglobin A1c (4.5-6.0) % Calcium 8.6 D (8.4-10.2) mg/dL Magnesium (1.6-2.3) mg/dL Total Bilirubin (0.2-1.3) mg/dL AST (17-59) U/L ALT (0-50) U/L Alkaline Phosphatase (38-126) U/L Troponin I (0.000-0.034) ng/mL Serum Total Protein (6.3-8.2) g/dL Albumin (3.5-5.0) g/dL Ethyl Alcohol (0-10) mg/dL 06/08/22 06/08/22 06/08/22 Range/Units 21:23 22:10 23:03 WBC (4.0-10.5) x10^3/uL RBC (4.1-5.6) x10^6/uL Hgb (12.5-18.0) g/dL Hct (42-50) % MCV (78-100) fL MCH (26-32) pg MCHC (32-36) g/dL RDW (11.5-14.0) % Plt Count (150-450) x10^3/uL MPV (7.5-11.0) fL Gran % (36.0-66.0) % Immature Gran % (Auto) (0.00-0.4) % Nucleat RBC Rel Count (0.00-0.1) % Eos # (Auto) (0-0.5) x10^3/uL Immature Gran # (Auto) (0.00-0.03) x10^3u/L Absolute Lymphs (auto) (1.0-4.6) x10^3/uL Absolute Monos (auto) (0.0-1.3) x10^3/uL Absolute Nucleated RBC (0.00-0.01) x10^3u/L Lymphocytes % (24.0-44.0) % Monocytes % (0.0-12.0) % Eosinophils % (0.00-5.0) % Basophils % (0.0-0.4) % Absolute Granulocytes (1.4-6.9) x10^3/uL Basophils # (0-0.4) x10^3/uL Sodium (137-145) mmol/L Potassium (3.5-5.1) mmol/L Chloride (98-107) mmol/L Carbon Dioxide (22-30) mmol/L Anion Gap (5-15) MEQ/L BUN (9-20) mg/dL Creatinine (0.66-1.25) mg/dL Estimated GFR ML/MIN Glucose (74-106) mg/dL POC Glucometer 258 H 364 H 423 H (74 to 106) mg/dL Hemoglobin A1c (4.5-6.0) % Calcium (8.4-10.2) mg/dL Magnesium (1.6-2.3) mg/dL Total Bilirubin (0.2-1.3) mg/dL AST (17-59) U/L ALT (0-50) U/L Alkaline Phosphatase (38-126) U/L Troponin I (0.000-0.034) ng/mL Serum Total Protein (6.3-8.2) g/dL Albumin (3.5-5.0) g/dL Ethyl Alcohol (0-10) mg/dL 06/08/22 06/09/22 06/09/22 Range/Units 23:25 00:18 01:10 WBC (4.0-10.5) x10^3/uL RBC (4.1-5.6) x10^6/uL Hgb (12.5-18.0) g/dL Hct (42-50) % MCV (78-100) fL MCH (26-32) pg MCHC (32-36) g/dL RDW (11.5-14.0) % Plt Count (150-450) x10^3/uL MPV (7.5-11.0) fL Gran % (36.0-66.0) % Immature Gran % (Auto) (0.00-0.4) % Nucleat RBC Rel Count (0.00-0.1) % Eos # (Auto) (0-0.5) x10^3/uL Immature Gran # (Auto) (0.00-0.03) x10^3u/L Absolute Lymphs (auto) (1.0-4.6) x10^3/uL Absolute Monos (auto) (0.0-1.3) x10^3/uL Absolute Nucleated RBC (0.00-0.01) x10^3u/L Lymphocytes % (24.0-44.0) % Monocytes % (0.0-12.0) % Eosinophils % (0.00-5.0) % Basophils % (0.0-0.4) % Absolute Granulocytes (1.4-6.9) x10^3/uL Basophils # (0-0.4) x10^3/uL Sodium 132 L (137-145) mmol/L Potassium 3.5 (3.5-5.1) mmol/L Chloride 92 L (98-107) mmol/L Carbon Dioxide 33 H (22-30) mmol/L Anion Gap 10.9 (5-15) MEQ/L BUN 17 (9-20) mg/dL Creatinine 0.76 (0.66-1.25) mg/dL Estimated GFR > 60.0 ML/MIN Glucose 287 H (74-106) mg/dL POC Glucometer 229 H 160 H (74 to 106) mg/dL Hemoglobin A1c (4.5-6.0) % Calcium 8.5 (8.4-10.2) mg/dL Magnesium (1.6-2.3) mg/dL Total Bilirubin (0.2-1.3) mg/dL AST (17-59) U/L ALT (0-50) U/L Alkaline Phosphatase (38-126) U/L Troponin I (0.000-0.034) ng/mL Serum Total Protein (6.3-8.2) g/dL Albumin (3.5-5.0) g/dL Ethyl Alcohol (0-10) mg/dL 06/09/22 06/09/22 06/09/22 Range/Units 02:12 03:21 04:07 WBC (4.0-10.5) x10^3/uL RBC (4.1-5.6) x10^6/uL Hgb (12.5-18.0) g/dL Hct (42-50) % MCV (78-100) fL MCH (26-32) pg MCHC (32-36) g/dL RDW (11.5-14.0) % Plt Count (150-450) x10^3/uL MPV (7.5-11.0) fL Gran % (36.0-66.0) % Immature Gran % (Auto) (0.00-0.4) % Nucleat RBC Rel Count (0.00-0.1) % Eos # (Auto) (0-0.5) x10^3/uL Immature Gran # (Auto) (0.00-0.03) x10^3u/L Absolute Lymphs (auto) (1.0-4.6) x10^3/uL Absolute Monos (auto) (0.0-1.3) x10^3/uL Absolute Nucleated RBC (0.00-0.01) x10^3u/L Lymphocytes % (24.0-44.0) % Monocytes % (0.0-12.0) % Eosinophils % (0.00-5.0) % Basophils % (0.0-0.4) % Absolute Granulocytes (1.4-6.9) x10^3/uL Basophils # (0-0.4) x10^3/uL Sodium (137-145) mmol/L Potassium (3.5-5.1) mmol/L Chloride (98-107) mmol/L Carbon Dioxide (22-30) mmol/L Anion Gap (5-15) MEQ/L BUN (9-20) mg/dL Creatinine (0.66-1.25) mg/dL Estimated GFR ML/MIN Glucose (74-106) mg/dL POC Glucometer 131 H 107 H 68 L (74 to 106) mg/dL Hemoglobin A1c (4.5-6.0) % Calcium (8.4-10.2) mg/dL Magnesium (1.6-2.3) mg/dL Total Bilirubin (0.2-1.3) mg/dL AST (17-59) U/L ALT (0-50) U/L Alkaline Phosphatase (38-126) U/L Troponin I (0.000-0.034) ng/mL Serum Total Protein (6.3-8.2) g/dL Albumin (3.5-5.0) g/dL Ethyl Alcohol (0-10) mg/dL 06/09/22 06/09/22 06/09/22 Range/Units 05:05 05:13 05:13 WBC 7.0 (4.0-10.5) x10^3/uL RBC 4.10 (4.1-5.6) x10^6/uL Hgb 11.9 L (12.5-18.0) g/dL Hct 34.9 L (42-50) % MCV 85.1 D (78-100) fL MCH 29.0 (26-32) pg MCHC 34.1 (32-36) g/dL RDW 13.8 (11.5-14.0) % Plt Count 235 D (150-450) x10^3/uL MPV 10.0 (7.5-11.0) fL Gran % 57.1 (36.0-66.0) % Immature Gran % (Auto) 0.3 (0.00-0.4) % Nucleat RBC Rel Count 0.0 (0.00-0.1) % Eos # (Auto) 0.08 (0-0.5) x10^3/uL Immature Gran # (Auto) 0.02 (0.00-0.03) x10^3u/L Absolute Lymphs (auto) 1.73 (1.0-4.6) x10^3/uL Absolute Monos (auto) 1.13 (0.0-1.3) x10^3/uL Absolute Nucleated RBC 0.00 (0.00-0.01) x10^3u/L Lymphocytes % 24.7 (24.0-44.0) % Monocytes % 16.2 H (0.0-12.0) % Eosinophils % 1.1 (0.00-5.0) % Basophils % 0.6 (0.0-0.4) % Absolute Granulocytes 3.99 (1.4-6.9) x10^3/uL Basophils # 0.04 (0-0.4) x10^3/uL Sodium 132 L (137-145) mmol/L Potassium 4.0 (3.5-5.1) mmol/L Chloride 94 L (98-107) mmol/L Carbon Dioxide 29 (22-30) mmol/L Anion Gap 12.1 (5-15) MEQ/L BUN 14 (9-20) mg/dL Creatinine 0.69 (0.66-1.25) mg/dL Estimated GFR > 60.0 ML/MIN Glucose 207 H (74-106) mg/dL POC Glucometer 164 H (74 to 106) mg/dL Hemoglobin A1c (4.5-6.0) % Calcium 8.3 L (8.4-10.2) mg/dL Magnesium (1.6-2.3) mg/dL Total Bilirubin 1.10 (0.2-1.3) mg/dL AST 29 (17-59) U/L ALT 18 (0-50) U/L Alkaline Phosphatase 113 (38-126) U/L Troponin I (0.000-0.034) ng/mL Serum Total Protein 6.3 (6.3-8.2) g/dL Albumin 3.6 (3.5-5.0) g/dL Ethyl Alcohol (0-10) mg/dL 06/09/22 06/09/22 06/09/22 Range/Units 05:13 06:12 07:17 WBC (4.0-10.5) x10^3/uL RBC (4.1-5.6) x10^6/uL Hgb (12.5-18.0) g/dL Hct (42-50) % MCV (78-100) fL MCH (26-32) pg MCHC (32-36) g/dL RDW (11.5-14.0) % Plt Count (150-450) x10^3/uL MPV (7.5-11.0) fL Gran % (36.0-66.0) % Immature Gran % (Auto) (0.00-0.4) % Nucleat RBC Rel Count (0.00-0.1) % Eos # (Auto) (0-0.5) x10^3/uL Immature Gran # (Auto) (0.00-0.03) x10^3u/L Absolute Lymphs (auto) (1.0-4.6) x10^3/uL Absolute Monos (auto) (0.0-1.3) x10^3/uL Absolute Nucleated RBC (0.00-0.01) x10^3u/L Lymphocytes % (24.0-44.0) % Monocytes % (0.0-12.0) % Eosinophils % (0.00-5.0) % Basophils % (0.0-0.4) % Absolute Granulocytes (1.4-6.9) x10^3/uL Basophils # (0-0.4) x10^3/uL Sodium (137-145) mmol/L Potassium (3.5-5.1) mmol/L Chloride (98-107) mmol/L Carbon Dioxide (22-30) mmol/L Anion Gap (5-15) MEQ/L BUN (9-20) mg/dL Creatinine (0.66-1.25) mg/dL Estimated GFR ML/MIN Glucose (74-106) mg/dL POC Glucometer 311 H 301 H (74 to 106) mg/dL Hemoglobin A1c (4.5-6.0) % Calcium (8.4-10.2) mg/dL Magnesium (1.6-2.3) mg/dL Total Bilirubin (0.2-1.3) mg/dL AST (17-59) U/L ALT (0-50) U/L Alkaline Phosphatase (38-126) U/L Troponin I (0.000-0.034) ng/mL Serum Total Protein (6.3-8.2) g/dL Albumin (3.5-5.0) g/dL Ethyl Alcohol < 10 (0-10) mg/dL Micro Results-Entire Visit: Accuchecks Date 06/08/22 Time 11:52 - Radiology Exams Ordered Rad Exams-Entire Visit: Radiology Procedures Category Date Time Status ABDOMEN AND PELVIS W/0 CONTRAS [CT] Stat Exams 06/08/22 07:34 Completed CHEST 1 VIEW (PORTABLE) Stat Exams 06/08/22 11:25 Completed - Procedures and Test Procedures and Tests throughout Hospitalization: Therapy Orders & Screens 06/08/22 15:23 EKG REPEAT IN AM Comment: Discharge Exam General Appearance: no apparent distress, alert Neurologic Exam: alert, oriented x 3, cooperative, normal mood/affect, nml cerebellar function, sensation nml, No motor deficits Eye Exam: PERRL, EOMI, eyes nml inspection Ears, Nose, Throat Exam: normal ENT inspection, pharynx normal, moist mucous membranes Neck Exam: normal inspection, non-tender, supple, full range of motion Respiratory Exam: normal breath sounds, lungs clear, No respiratory distress Cardiovascular Exam: regular rate/rhythm, normal heart sounds Gastrointestinal/Abdomen Exam: soft, No tenderness, No mass Male Genitalia Exam: deferred Rectal Exam: deferred Back Exam: normal inspection, normal range of motion, No CVA tenderness, No vertebral tenderness Extremity Exam: normal inspection, normal range of motion Skin Exam: normal color, warm, dry Final Diagnosis/Problem List - Final Discharge Diagnosis/Problem (1) Alcoholic ketoacidosis Status: Resolved Code(s): E87.29 - OTHER ACIDOSIS - Discharge Discharge Date: 06/09/22 Disposition: Against Medical Advice Condition: Stable Prescriptions: No Action No Reportable Medications [No Reported Medications] Follow up with: DOCTOR,NO FAMILY [Primary Care Provider] -
== END 2022-06-09 10:15 | disposition left against medical advice (07) ==
LOC: ED 05:42 → ICU 13:08 → INTOOBSV 13:08
PROVIDERS: ADMIT General Practice; ATTEND General Practice
DX: E10.10 Type 1 diabetes mellitus with ketoacidosis without coma (principal); F10.220 Alcohol dependence with intoxication, uncomplicated; E10.65 Type 1 diabetes mellitus with hyperglycemia; I10 Essential (primary) hypertension; E87.5 Hyperkalemia; E87.1 Hypo-osmolality and hyponatremia; Z72.0 Tobacco use; Z20.828 Contact with and (suspected) exposure to other viral communicable diseases; Z91.148 Patient's other noncompliance with medication regimen for other reason
CPT/HCPCS: 0241U; 26556; 36000; 36415; 71045; 74176; 80048; 80053; 80307; 81001; 82077; 82150; 82947; 83036; 83690; 83735; 84484; 85025; 93005; 93041; 94640; 94760; 96360; 96372; 96374; 96375; 99285; 36556; 93268; J0612; J1815; J1817; J1940; J2060; J2250; J7609; A9270-GY; G0378